=== PATIENT | female | born 1945 | race Caucasian/White ===

== ENCOUNTER 2020-02-29 07:56 | Outpatient (CLI) | payer MEDICARE, SELFPAY ==
--- NOTE | ~2020-02-29 | US_ITS ---
US arterial ankle brachial ind INDICATION: Diabetes. History of smoking. Intermittent claudication. TECHNIQUE: Segmental pressures and plethysmographic and Doppler waveforms of the brachial and lower e xtremity arteries were obtained. COMPARISON: 05/17/2017. FINDINGS: Right and left brachial artery pressures of 139 mm Hg and 140 mm Hg, respectively, are concordant (no rmal difference <= 30 mmHg). The right ankle-brachial index (NATALIE) is 0.95 (normal >= 0.9-1.0). The right great toe-brachial index (TBI) is 0.91 (normal >= 0.60). The left NATALIE is 0.97. The left TBI is 0.83. IMPRESSION: 1. Normal bilateral ankle and toe brachial indices. Reviewed, dictated and finalized at location A.
== END 2020-02-29 07:57 | disposition home or self-care (01) ==
PROVIDERS: PCP Internal Medicine; Visit Provider Internal Medicine
DX: I73.89 Other specified peripheral vascular diseases (principal)
CPT/HCPCS: 93922

== ENCOUNTER → 2020-08-01 09:41 | Outpatient (CLI) | payer MEDICARE, SELFPAY ==
--- NOTE | ~2020-08-01 | US_ITS ---
EXAMINATION: US abdomen limited EXAM DATE: 08/01/2020 10:16 INDICATION: Abn results of liver function, abn CT of liver . TECHNIQUE: Multiple grayscale and Doppler images of the abdomen right upper quadrant were obtained (b y a technologist who performed the scan) and subsequently reviewed. Correlation is made to CT abdomen 02/15/2019, ultrasound 05/23/2014. FINDINGS: The pancreatic head and body are normal in appearance. The pancreatic tail is not visualized. The l iver has normal echogenicity and contour. Some liver granulomata. There is no evidence of intrahepa tic biliary duct dilation. Portal venous flow was seen in the hepatopedal, normal direction and has normal Doppler waveform. No right-sided hydronephrosis. Common bile duct measures 8 mm, which is mildly dilated but common finding following cholecystectomy. IMPRESSION: 1. Several liver granulomata. Reviewed, dictated and finalized at location B. [employer]RARIAN
== END ==
PROVIDERS: PCP Internal Medicine; Visit Provider Internal Medicine Gastroenterology
DX: R94.5 Abnormal results of liver function studies (principal); R93.2 Abnormal findings on diagnostic imaging of liver and biliary tract
CPT/HCPCS: 76705

== ENCOUNTER → 2020-09-16 11:32 | Outpatient (CLI) | payer MEDICARE, SELFPAY ==
--- NOTE | ~2020-09-16 | CT_ITS ---
EXAMINATION: CT lung screening DATE: 09/16/2020 11:47 INDICATION: Personal history of tobacco dependence, current smoker with 57 pack year history TECHNIQUE: Computed tomography (CT) of the chest was performed without intravenous contrast. The dose -length product (DLP) was 101.53 mGy-cm. Automated exposure control and iterative reconstruction tech [employer] were employed. COMPARISON: 06/13/2018 FINDINGS: There is mild emphysema. No pulmonary nodules are identified. The lungs are free of acute o pacities. There is no pleural effusion or pneumothorax. Calcified coronary artery atherosclerosis is noted. There is a small sliding hiatal hernia. Punctate calcifications in an otherwise normal liver l ikely represent healed granulomatous disease. There is moderate thoracic spondylosis. IMPRESSION: 1. Lung-RADS category 1: Negative. Continue annual screening with noncontrast low-dose chest CT in 12 months. Reviewed, dictated and finalized at location B. IMPRESSION: 1. Lung-RADS category 1: Negative. Continue annual screening with noncontrast l ow-dose chest CT in 12 months.
--- NOTE | ~2020-09-16 | US_ITS ---
EXAMINATION: US renal BI DATE: 09/16/2020 12:01 INDICATION: Hematuria, multiple urinary tract infections TECHNIQUE: Multiple grayscale and Doppler ultrasound images of the kidneys were obtained. COMPARISON: CT, 06/14/2018 FINDINGS: The right kidney measures 8.9 x 3.7 x 4.0 cm. The left kidney measures 9.8 x 4.3 x 4.9 cm a nd contains a 1.4 cm cyst. The kidneys demonstrate normal parenchymal echogenicity. There is no hydro nephrosis. The bladder wall is mildly thickened although the bladder is incompletely distended. There appears to be debris layering posteriorly in the bladder. IMPRESSION: 1. Normal kidneys without hydronephrosis. 2. Possible bladder wall thickening which could be due to incomplete distention or cystitis. Small am ount of posterior debris in the bladder is also suggestive of infection, current versus previous. Reviewed, dictated and finalized at location B. IMPRESSION: 1. Normal kidneys without hydronephrosis. 2. Possible bladder wall thickening which could be due to incomplete distention or cystitis. Small amount of posterior debris in the bladder is also suggestiv e of infection, current versus previous.
== END ==
PROVIDERS: Visit Provider Internal Medicine
DX: R31.9 Hematuria, unspecified (principal); Z12.2 Encounter for screening for malignant neoplasm of respiratory organs; Z87.891 Personal history of nicotine dependence
CPT/HCPCS: 71271; 76775

== ENCOUNTER 2020-10-01 08:18 | Outpatient (CLI) | payer MEDICARE, SELFPAY ==
--- NOTE | ~2020-10-01 | US_ITS ---
EXAMINATION: US art doppler w press ISAEL DOMINGO EXAM DATE: 10/01/2020 09:02 INDICATION: Leg peripheral arterial disease. Claudication at less than 1 block. TECHNIQUE: Segmental pressures and plethysmographic and Doppler waveforms of the brachial and lower e xtremity arteries were obtained. Comparison is made to prior examination from 02/29/2020. FINDINGS: Right and left brachial artery pressures of 146 mm Hg and 156 mm Hg, respectively, are concordant (no rmal difference <= 30 mmHg). The right and left thigh-brachial pressure indices are 0.99, 1.07, resp ectively (normal > 1.2). RIGHT LEG: The ankle-brachial index (NATALIE) is 0.89 (normal >= 0.9-1). The great toe-brachial index (TBI) is 1.28 (normal >= 0.65). The lower extremity ratios, segmental pressure gradients as follows; Proximal superficial femoral artery:- 0.99 (154 mmHg). Distal superficial femoral artery: ----- 1.20 (187 mmHg). Popliteal: 0.95 (148 mmHg). Dorsalis pedis: 0.87 (136 mmHg). Posterior tibial: 0.89 (139 mmHg). (Normal gradients <= 20-30 mmHg between adjacent levels on the same leg or the same levels on the two legs). Arterial waveforms are biphasic. LEFT LEG: The ankle-brachial index (NATALIE) is 0.98 (normal >= 0.9-1). The great toe-brachial index (TBI) is 0.67 (normal >= 0.65). The lower extremity ratios, segmental pressure gradients as follows; Proximal superficial femoral artery:- 1.07 (167 mmHg). Distal superficial femoral artery: ----- 1.19 (186 mmHg). Popliteal: 1.19 (186 mmHg). Dorsalis pedis: 0.98 (153 mmHg). Posterior tibial: 0.94 (146 mmHg). (Normal gradients <= 20-30 mmHg between adjacent levels on the same leg or the same levels on the two legs). Arterial waveforms are biphasic. IMPRESSION: 1. Right ankle-brachial index 0.89, slightly decreased. 2. Left ankle-brachial index 0.98, normal. 3. Segmental pressures as above. Reviewed, dictated and finalized at location A.
== END 2020-10-01 08:19 | disposition home or self-care (01) ==
PROVIDERS: Visit Provider Internal Medicine
DX: I73.9 Peripheral vascular disease, unspecified (principal)
CPT/HCPCS: 93923

== ENCOUNTER 2020-10-22 19:29 | Emergency (ER) | payer MEDICARE, SELFPAY ==
--- NOTE | ~2020-10-22 | CT_ITS ---
EXAMINATION: CT brain wo con INDICATION: Head injury COMPARISON: 01/13/2017 TECHNIQUE: Standard unenhanced head CT. The dose-length product (DLP) was 605.33 mGy-cm. The mA was a djusted according to patient size. Iterative reconstruction technique was employed. FINDINGS: There is no acute intraparenchymal hemorrhage. No evidence of mass lesion. There is old rig ht frontal lobe infarct. No evidence of acute infarction. There is moderate periventricular and subco rtical hypodensity probably related to small vessel ischemic disease. There is moderate prominence of the sulci and ventricles related to cerebral atrophy. Intracranial calcified cerebral atherosclerosi s is noted. There are no extra-axial collections. There is no mass effect or midline shift. Changes i n the globes are likely from ocular lens surgery. There is mild mucosal thickening of the paranasal s inuses. IMPRESSION: 1. No acute intracranial abnormality. 2. Age related findings. Reviewed, dictated and finalized at location A.
[2020-10-22 19:57] VITALS: PULSE 63; RESP 16; TEMP 36.8; O2SAT 100
--- NOTE | 2020-10-22 20:30 | ED.HEATRA ---
HPI - Head Injury General Chief complaint: Fall Stated complaint: fall, hit head. no blood thinners Time Seen by Provider: 10/22/20 20:17 Source: patient Mode of arrival: ambulatory Limitations: no limitations History of Present Illness HPI Narrative: Patient is a 74-year-old female complaining of hitting her head on the floor earlier this afternoon. Patient states that she was sitting down on her roller with 5 wheels, she is always unsteady on her feet because of her bad knees and neuropathy according to and she fell backwards and hit the back of her head, denies LOC, had mild pain earlier but currently denies any head pain or headache. Denies any neck, back, chest, hip or any extremity pain/injury. Patient currently denies any symptoms. Related Data Home Medications Medication Instructions Recorded Confirmed alendronate mg PO 05/07/19 08/21/19 allopurinol 05/07/19 08/21/19 glimepiride mg 05/07/19 08/21/19 losartan 05/07/19 08/21/19 metoprolol tartrate 05/07/19 08/21/19 pregabalin 05/07/19 08/21/19 sertraline mg 05/07/19 08/21/19 Allergies Allergy/AdvReac Type Severity Reaction Status Date / Time codeine AdvReac Chest Pain Verified 10/22/20 19:59 Review of Systems Review of Systems: All systems reviewed & are unremarkable except as noted in HPI and below Constitutional: Constitutional: Denies body ache(s), Denies chills, Denies excessive sweating, Denies fatigue, Denies fever(s), Denies headache(s), Denies lethargy, Denies malaise, Denies weakness and Denies weight loss Eyes: Eyes: Denies blurry vision, Denies change in vision and Denies loss of vision ENT: Denies dizziness, Denies ear discharge, Denies headache(s), Denies lip swelling, Denies epistaxis, Denies nasal congestion, Denies neck pain, Denies throat swelling and Denies tongue swelling Cardiovascular: Cardiovascular: Denies chest pain, Denies chest pain at rest, Denies chest pain with activity, Denies diaphoresis, Denies rapid heart rate, Denies edema, Denies irregular heart rhythm, Denies lightheadedness, Denies palpitations, Denies dyspnea and Denies dyspnea on exertion Respiratory: Respiratory: Denies chest congestion, Denies cough, Denies hemoptysis, Denies dyspnea and Denies dyspnea on exertion Gastrointestinal: Gastrointestinal: Denies abdominal pain, Denies melena, Denies hematochezia, Denies diarrhea, Denies nausea, Denies vomiting and Denies hematemesis Musculoskeletal: Musculoskeletal: Denies abnormal gait, Denies deformity, Denies joint swelling, Denies limited range of motion, Denies neck pain and Denies numbness Neurologic: Denies Abnormal speech present, Denies abnormal gait, Denies confusion, Denies dizziness, Denies headache(s), Denies focal weakness, Denies loss of vision, Denies numbness, Denies Other visual disturbances, Denies Sensory deficit (Neuro) and Denies weakness Psychiatric: Psychiatric: Denies confusion, Denies depression, Denies auditory hallucinations, Denies homicidal ideation and Denies suicidal ideation Endocrine: Endocrine: Denies cold intolerance, Denies excessive sweating, Denies fatigue, Denies heat intolerance and Denies palpitations Hematologic/Lymphatic: Hematologic/Lymphatic: Denies easy bleeding and Denies easy bruising Allergic/Immunologic: Allergic/Immunologic: Denies lip swelling, Denies throat swelling and Denies tongue swelling PMFSH Past Medical History Medical History Arthritis Gout Hypertension Peripheral neuropathy Type 2 diabetes mellitus Surgical History Surgical History History of appendectomy History of hysterectomy Social History Social History Gender identity (if verbalized by the patient): Female Exam Const: General: cooperative, healthy appearing, comfortable, no acute distress, well developed, alert and a
[2020-10-22 20:54] LABS: Glucose Point of Care 70 mg/dl (65-105)
[2020-10-22 21:20] VITALS: BP 127/69; PULSE 68; RESP 17; O2SAT 98
== END 2020-10-22 21:21 | disposition home or self-care (01) ==
LOC: ANHED 20:36
PROVIDERS: Emergency Provider Emergency Medicine; PCP Internal Medicine
DX: S09.90XA Unspecified injury of head, initial encounter (principal); M19.90 Unspecified osteoarthritis, unspecified site; I10 Essential (primary) hypertension; E11.42 Type 2 diabetes mellitus with diabetic polyneuropathy; W19.XXXA Unspecified fall, initial encounter
CPT/HCPCS: 70450; 82948; 99284

== ENCOUNTER 2021-02-18 15:39 | Emergency (ER) | payer MEDICARE, SELFPAY ==
--- NOTE | ~2021-02-18 | CT_ITS ---
EXAMINATION: CT brain wo con DATE: 02/18/2021 19:14 INDICATION: Left frontal headache, confusion. TECHNIQUE: Computed tomography (CT) of the head was performed without intravenous contrast. The mA wa s adjusted according to patient size. Iterative reconstruction technique was employed. Exam dose: 52 9.67 mGy-cm total exam DLP. COMPARISON: 10/22/2020 CT brain 02/15/2019 MRI brain/brainstem FINDINGS: There is stable chronic right frontal encephalomalacia consistent with history of right fro ntal cerebrovascular accident. Prominent bilateral carotid siphon internal carotid artery calcifications. No intracranial mass lesion or hemorrhage or recent cerebrovascular accident. There is nonspecific diminished attenuation cerebral white matter, likely due to chronic small vessel ischemic changes. No subdural or epidural hematoma is detected. There is soft tissue thickening in the posterior aspect of the left sphenoid sinus. Included paranasa l sinuses and mastoid air cells are otherwise unremarkable. No fracture or bone destruction of the cranial vault. IMPRESSION: Cerebral atherosclerosis and chronic small vessel ischemic changes of the cerebral white matter Chronic right frontal infarct No acute intracranial finding Reviewed, dictated and finalized at Location A. Reviewed, dictated and finalized at location A.
--- NOTE | ~2021-02-18 | XR_ITS ---
XR chest 1V portable DATE: 02/18/2021 19:08 INDICATION: Altered mental status. Headache. Hypertension. Gout. TECHNIQUE: Portable upright AP chest on 02/18/2021 at 1859 hours COMPARISON: CT lung screening 01/13/2017 portable AP chest FINDINGS: Cardiomegaly. Aortic calcification and mild unfolding. No hilar or mediastinal enlargement. No pulmonary consolidation, pleural effusion or pneumothorax is detected. Diffuse osteopenia. IMPRESSION: Cardiomegaly and aortic atherosclerosis; no active pulmonary disease Reviewed, dictated and finalized at location A. IMPRESSION: Cardiomegaly and aortic atherosclerosis; no active pulmonary diseas e
[2021-02-18 15:42] VITALS: BP 119/51; PULSE 59; RESP 16; TEMP 37; O2SAT 98
--- NOTE | 2021-02-18 15:44 | ECG_ITS ---
Measurements Intervals [place] Rate: 56 P: 82 TN: 241 QRS: -55 QRSD: 114 T: 53 QT: 414 QTc: 400 Interpretive Statements SINUS BRADYCARDIA WITH FIRST DEGREE AV BLOCK RIGHT BUNDLE BRANCH BLOCK LEFT ANTERIOR FASCICULAR BLOCK VOLTAGE CRITERIA FOR LVH BASELINE ARTIFACT- I, II, III, AVR, AVL, AVF, V1-V6 ABNORMAL ECG Electronically Signed On 02-18-2021 19:50:27 CDT by Jose Baker D.O.
[2021-02-18 16:00] LABS: Basophils Percent Auto 0.5 % (0.2-1.2); Eosinophils Absolute Auto 0.1 K/mm3 (0-0.3); Eosinophils Percent Auto 1.3 % (0-4.4); Hematocrit 35.1 % (37.0-47.0); Hemoglobin 11.4 g/dL (12.0-15.0); Immature Granulocyte Absolute 0.02 K/mm3 (0.00-0.031); Immature Granulocyte Percent A 0.5 % (0-0.5); Lymphocytes Absolute Auto 0.76 K/mm3 (0.9-3.2); Lymphocytes Percent Auto 20.2 % (18.3-44.2); Mean Corpuscular HGB Conc 32.5 g/dl (32-36); Mean Corpuscular Hemoglobin 31.3 pg (26-34); Mean Corpuscular Volume 96.4 fl (80-100); Mean Platelet Volume 12.5 fl (7.4-10.4); Monocytes Absolute Auto 0.4 K/mm3 (0.1-0.6); Monocytes Percent Auto 10.6 % (2.6-8.5); Neutrophils Absolute Auto 2.5 K/mm3 (1.3-6.7); Neutrophils Percent Auto 66.9 % (45.5-73.1); Platelet Count Result 101 k/mm3 (150-375); Red Blood Count 3.64 M/mm3 (4.2-5.4); Red Cell Distribution Width 15.1 % (11.5-14.5); White Blood Count 3.8 K/mm3 (4.5-10.0)
[2021-02-18 16:16] LABS: Alanine Aminotransferase 12 U/L (4-35); Albumin Level 3.7 g/dL (3.5-5.1); Alkaline Phosphatase 160 U/L (38-126); Anion Gap 9 mmol/L (8-16); Aspartate Amino Transferase 24 U/L (14-36); Bilirubin,Total 0.3 mg/dL (0.2-1.3); Blood Urea Nitrogen 24 mg/dL (7-17); Calcium 8.7 mg/dL (8.4-10.2); Carbon Dioxide 22 mmol/L (22-30); Chloride 105 mmol/L (98-107); Estimated CRCL calculation 32 ml/min; Estimated Glomerular Filt Rate 44; Glucose 148 mg/dL (65-110); Potassium 4.3 mmol/L (3.4-5.0); Sodium 136 mmol/L (137-145)
[2021-02-18 18:51] VITALS: BP 96/77; PULSE 57; RESP 18; O2SAT 98
--- NOTE | 2021-02-18 19:11 | PC.NURSE ---
Pt to imaging at this time.
--- NOTE | 2021-02-18 19:30 | ED.GENADULT ---
HPI - General Adult General Chief complaint: Altered Mental Status Stated complaint: Confusion Time Seen by Provider: 02/18/21 18:49 Source: patient History of Present Illness HPI narrative: Patient is a 75 y/o female brought in by EMS for altered mental status. states that she was acting confused since about 4:00 AM this morning. She was talking about people. There is no known alleviating or exacerbating factor. However, her symptoms have improved spontaneously. She appears to be baseline at this time. Patient has no complaint herself. Related Data Home Medications Medication Instructions Recorded Confirmed alendronate mg PO 05/07/19 08/21/19 allopurinol 05/07/19 08/21/19 glimepiride mg 05/07/19 08/21/19 losartan 05/07/19 08/21/19 metoprolol tartrate 05/07/19 08/21/19 pregabalin 05/07/19 08/21/19 sertraline mg 05/07/19 08/21/19 Allergies Allergy/AdvReac Type Severity Reaction Status Date / Time codeine AdvReac Chest Pain Verified 10/22/20 19:59 Review of Systems Constitutional: Constitutional: Denies chills, Denies fever(s), Denies headache(s) and Denies weakness Eyes: Eyes: Denies blurry vision ENT: Denies headache(s) and Denies neck pain Cardiovascular: Cardiovascular: Denies chest pain and Denies dyspnea Respiratory: Respiratory: Denies cough and Denies dyspnea Gastrointestinal: Gastrointestinal: Denies abdominal pain, Denies diarrhea, Denies nausea and Denies vomiting Genitourinary: Genitourinary: Denies hematuria and Denies dysuria Musculoskeletal: Musculoskeletal: Denies back pain and Denies neck pain Neurologic: Denies headache(s) and Denies weakness [facility] Past Medical History Medical History Arthritis Gout Hypertension Peripheral neuropathy Type 2 diabetes mellitus Surgical History Surgical History History of appendectomy History of hysterectomy Social History Social History Gender identity (if verbalized by the patient): Female Exam Const: General: no acute distress and well developed Orientation/consciousness: oriented to person, oriented to place, oriented to time and patient oriented x3 HENMT: Head: normocephalic Ears: external ears normal General nose exam: Normal external nose present Eyes: General: appearance normal, both eyes and all related structures Conjunctivae: conjunctivae normal Neck: Neck: normal visual inspection and full ROM Chest: Chest palpation & inspection: normal inspection of the chest and no tenderness Resp: Effort & Inspection: normal respiratory effort Auscultation: clear to auscultation bilaterally Cardio: Rate: regular rate Rhythm: regular rhythm GI: GI Palp: No abdominal tenderness and Yes Soft to palpation Skin: General skin exam: normal color and turgor normal Neuro: General: oriented to person, oriented to place, oriented to time and patient oriented x3 Cranial nerves: Yes CN's II-XII intact bilaterally Cognition (Neuro): normal cognition Speech: normal speech Motor exam (neuro): 5/5 motor strength present throughout Sensory Exam: normal sensation Coordination: [id number] test normal and [id number] test normal Extrem: General: normal to inspection, full ROM and no pedal edema Psych: Appearance: grossly normal Mental Status: mental status grossly normal Affect: normal affect Course Vital Signs Vital signs: Vital Signs Temperature 37.0 C 02/18/21 15:42 Pulse Rate 59 L 02/18/21 15:42 Respiratory Rate 16 02/18/21 15:42 Blood Pressure 119/51 L 02/18/21 15:42 Pulse Oximetry 98 02/18/21 15:42 Temperature 37.0 C 02/18/21 15:42 Pulse Rate 59 L 02/18/21 21:15 Respiratory Rate 16 02/18/21 21:15 Blood Pressure 141/64 H 02/18/21 21:15 Pulse Oximetry 95 02/18/21 21:15 Medical Decision Making Vital Signs Vital Sig
[2021-02-18 19:31] VITALS: BP 142/73; PULSE 62; RESP 21; O2SAT 100
[2021-02-18 19:45] VITALS: BP 135/82; PULSE 60; RESP 18; O2SAT 94
[2021-02-18 20:15] VITALS: BP 138/69; PULSE 57; RESP 17; O2SAT 99
[2021-02-18 20:46] LABS: EDCOVIDSCREEN Negative (Negative)
[2021-02-18 20:47] LABS: Add Urine Microscopic? YES; Amorphous Sediment Urine Few; Appearance Urine Cloudy (Clear); Bacteria Urine 1+ /hpf; Bilirubin Urine Negative (Negative); Blood Urine 3+ (Negative); Color Urine Yellow (Yellow); Glucose Urine UA Negative (Negative); Ketones Urine Negative (Negative); Leukocyte Esterase Ur 3+ LEU/UL (Negative); Mucus Urine Rare /lpf; Nitrate Urine Positive (Negative); Protein Urine 2+ mg/dL (Negative); RBC Urine >75 /hpf (0-2); Specific Grav Ur 1.014 (1.001-1.035); Urobilinogen Urine Negative mg/dL (<2.0); WBC Clumps Urine Present /HPF; WBC Urine >75 /hpf
[2021-02-18 21:15] VITALS: BP 141/64; PULSE 59; RESP 16; O2SAT 95
== END 2021-02-18 21:20 | disposition home or self-care (01) ==
PROVIDERS: Emergency Medicine; Emergency Provider Emergency Medicine; PCP Internal Medicine
DX: N39.0 Urinary tract infection, site not specified (principal); R41.82 Altered mental status, unspecified; M19.90 Unspecified osteoarthritis, unspecified site; I10 Essential (primary) hypertension; E11.42 Type 2 diabetes mellitus with diabetic polyneuropathy; Z20.822 Contact with and (suspected) exposure to COVID-19
CPT/HCPCS: 36415; 70450; 71045; 80053; 81001; 85025; 87077; 87086; 87186; 87426; 93005; 99284; C9803

== ENCOUNTER 2021-02-24 03:19 | Inpatient (IN) | payer MEDICARE, SELFPAY ==
[2021-02-24] VITALS (15 sets, daily range): BP systolic 78–137; BP diastolic 52–83; PULSE 75–134; RESP 14–20; TEMP 36–39.1; O2SAT 93–97; BMI 24.6
--- NOTE | ~2021-02-24 | CT_ITS ---
EXAMINATION:CT diagnostic chest wo con DATE: 02/24/2021 07:22 INDICATION: Shortness of breath. Hypoxia. COVID-19 pneumonia. TECHNIQUE: Computed tomography (CT) of the chest was performed without intravenous contrast. Automate d exposure control and iterative reconstruction technique were employed. The dose-length product (DLP ) was 131.66 mGy-cm. COMPARISON: Chest CT 09/16/2020 FINDINGS: There is mild emphysema. Motion artifact is noted. There are mild airspace opacities in the basilar lower lobes. There are patchy groundglass opacities in all lobes. There are areas of crazy p aving in the upper lobes and right middle lobe. No pleural effusion. 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 The heart size is normal. There are coronary artery calcifications. There is mild media stinal lymphadenopathy. There is a small sliding hiatal hernia. Calcifications in the liver and splee n are consistent with old granulomatous disease. There is severe cervical and thoracic spondylosis. T here is mild chronic anterior wedging of multiple lower thoracic vertebral bodies. IMPRESSION: 1. Diffuse lung disease, consistent with pneumonia. 2. Mild emphysema. 3. Mild mediastinal lymphadenopathy, likely reactive. Reviewed, dictated and finalized at location A.
--- NOTE | 2021-02-24 03:47 | ECG_ITS ---
Measurements Intervals [place] Rate: 130 P: PA: 0 QRS: -65 QRSD: 109 T: 99 QT: 343 QTc: 505 Interpretive Statements ATRIAL FIBRILLATION WITH RAPID VENTRICULAR RESPONSE VENTRICULAR PREMATURE COMPLEX RIGHT BUNDLE BRANCH BLOCK LEFT ANTERIOR FASCICULAR BLOCK BASELINE ARTIFACT- I, II, AVR, V1, V4-V6 ABNORMAL ECG Electronically Signed On 02-24-2021 7:28:42 CDT by Jose Baker D.O.
[2021-02-24] MEDS: methylPREDNISolone SOD SUCC 125 MG VIAL IV PUSH (04:17)
[2021-02-24] MEDS: ALBUTEROL SULFATE (*SP) INHALER 2 PUFF INHALATION (04:20)
[2021-02-24] MEDS: SODIUM CHLORIDE 0.9% IV 500 ML 999 ML IV CONT (04:25)
[2021-02-24 04:55] LABS: Base Excess ABG -3.1 mmol/L (0-2); HCO3 ABG 19.6 mmol/L (23-29); Oxygen Saturation ABG 90.7 % (95-97); Oxyhemoglobin 89.7 % (94-100); PCO2 ABG 29.2 mmHg (35-45); PO2 ABG 56.6 mmHg (75-85); Total Hemoglobin 14.3 g/dL (12.0-18.0); pH ABG 7.45 (7.35-7.45)
[2021-02-24 04:58] LABS: Device NASAL CANNULA; Modified Allen's Test Pass; Site Drawn LEFT RADIAL
[2021-02-24 05:07] LABS: Basophils Absolute Auto 0.01 K/mm3 (0.00-0.10); Basophils Percent Auto 0.1 % (0.0-1.0); Hematocrit 31.8 % (35.0-42.0); Hemoglobin 10.8 g/dL (11.7-13.8); Immature Granulocyte Absolute 0.04 K/mm3 (0.00-0.00); Immature Granulocyte Percent A 0.5 % (0.0-0.0); Lymphocytes Absolute Auto 1.39 K/mm3 (1.10-4.50); Mean Corpuscular Hemoglobin 31.2 pg (27.0-31.0); Mean Corpuscular Volume 91.9 fL (78.0-102.0); Mean Platelet Volume 12.6 fl (9.2-11.8); Monocytes Percent Auto 13.5 % (2.0-11.0); Neutrophils Absolute Auto 5.6 K/mm3 (1.7-7.2); Neutrophils Percent Auto 68.9 % (50.0-70.0); Platelet Count Result 108 K/mm3 (150-420); Red Blood Count 3.46 M/mm3 (4.20-5.40); Red Cell Distribution Width 14.4 % (11.6-14.4); White Blood Count 8.2 K/mm3 (4.8-10.8)
[2021-02-24 05:16] LABS: Add Urine Microscopic? YES; Appearance Urine Clear (Clear); Bilirubin Urine 1+ (Negative); Blood Urine 3+ (Negative); Color Urine Yellow (Yellow); Glucose Urine UA Negative (Negative); Ketones Urine Negative (Negative); Leukocyte Esterase Ur 1+ (Negative); Nitrate Urine Negative (Negative); Protein Urine 2+ (Negative); pH Urine 5.5 (5.0-8.0)
[2021-02-24 05:25] LABS: Influenza Control Valid (Valid)
[2021-02-24 05:26] LABS: Bacteria Urine 2+ /hpf; RBC Urine 21-50 /hpf (0-2); Squamous Epithelial Cell Urine Moderate /hpf (Few); WBC Clumps Urine Present /hpf; WBC Urine 16-20 /hpf (0-3)
[2021-02-24 05:31] LABS: SARS-CoV-2 Ag Positive (Negative)
[2021-02-24 05:38] LABS: Alanine Aminotransferase 16 U/L (14-59); Albumin Level 2.8 g/dL (3.4-5.0); Alkaline Phosphatase 127 U/L (46-116); Aspartate Amino Transferase 26 U/L (15-37); Bilirubin,Total 0.6 mg/dL (0.00-1.00); Blood Urea Nitrogen 31 mg/dL (7-18); Carbon Dioxide 20 mmol/L (21-32); Estimated Glomerular Filt Rate 30; Glucose 121 mg/dL (70-99); Total Protein 7.6 g/dL (6.4-8.2); Troponin I 18.4 ng/L (0.00-60.4)
[2021-02-24 05:39] LABS: NT Pro B Type Natriuretic Pept 2609 pg/mL (0-450)
--- NOTE | 2021-02-24 05:58 | PC.NURSE ---
granddaughter notified pt positive for covid. and visitor policy.
--- NOTE | 2021-02-24 06:00 | PC.NURSE ---
pt sleeping, respiration even unlabored.
[2021-02-24] MEDS: AZITHROMYCIN 250 MG TABLET 500 MG PO (06:50)
--- NOTE | 2021-02-24 06:50 | ED.SOB ---
HPI - SOB/Dyspnea General Chief Complaint: Shortness of Breath/Dyspnea Stated Complaint: sob Time Seen by Provider: 02/24/21 03:21 Source: patient, family, EMS and RN notes reviewed Mode of arrival: EMS Limitations: clinical condition (pt was very dyspneic and did not talk very much.) History of Present Illness MD elicited complaint: shortness of breath, cough and chest pain Onset (ago): day(s) (1) Context: recent illness Timing: progressively worsening Severity: moderate Exacerbating factors: lying flat and coughing Relieving factors: nothing Associated symptoms: chest pain, fever, cough and wheezing Treatment prior to arrival: oxygen Related Data Home oxygen amount: none Home Medications Medication Instructions Recorded Confirmed alendronate 70 mg PO WEEKLY 05/07/19 02/24/21 allopurinol 100 mg PO DAILY 05/07/19 02/24/21 losartan 100 mg PO DAILY 05/07/19 02/24/21 metoprolol tartrate 50 mg PO BID 05/07/19 02/24/21 pregabalin 150 mg PO DAILY 05/07/19 02/24/21 sertraline 50 mg PO DAILY 05/07/19 02/24/21 oxybutynin chloride 10 mg PO DAILY 02/24/21 02/24/21 trazodone 50 mg PO DAILY 02/24/21 02/24/21 Allergies Allergy/AdvReac Type Severity Reaction Status Date / Time codeine AdvReac Chest Pain Verified 10/22/20 19:59 Review of Systems Review of Systems: All systems reviewed & are unremarkable except as noted in HPI and below Constitutional: Constitutional: Reports fever(s) Cardiovascular: Cardiovascular: Reports chest pain Respiratory: Respiratory: Reports cough PMFSH Past Medical History Medical History (Updated 02/24/21 @ 14:00 by GIUSEPPE Schneider) Arthritis Gout Hypertension Peripheral neuropathy Type 2 diabetes mellitus Surgical History Surgical History History of appendectomy History of hysterectomy Social History Social History Smoking packs per day: 0.5 Smoking cigarettes per day: 10.0 Years smoked: 40 Smoking pack-years: 20.00 Smoking status: Current every day smoker Tobacco type: cigarettes Alcohol intake: never Substance use: never Substance use type: does not use Gender identity (if verbalized by the patient): Female Spiritual care concerns: No Exam Const: General: alert and diaphoretic Orientation/consciousness: patient oriented x3 HENMT: Ears: external ears normal and TM's normal bilaterally General nose exam: Normal external nose present and Normal nares present Mouth: Yes moist mucous membranes Eyes: Conjunctivae: conjunctivae normal Pupils: Equal, round and reactive pupils present EOM: EOMs intact bilaterally Neck: Neck: normal visual inspection Resp: Effort & Inspection: labored, retractions, tachypneic and uses accessory muscles Auscultation: rhonchi and wheezes Cardio: Rhythm: abnormal rhythm GI: GI Palp: Yes Soft to palpation (non-tender) Percussion: Yes normal to percussion Auscultation: normal bowel sounds : General: Yes bladder normal to palpation and Yes no CVA tenderness Back/Spine/Pelvis: Back: no CVA tenderness Skin: General skin exam: normal color Rashes: no rashes Neuro: General: patient oriented x3, moves all extremities, no meningeal signs, no focal motor deficits and CN's II-XI intact bilaterally Extrem: General: normal to inspection and no pedal edema Psych: Mental Status: mental status grossly normal Affect: Sad affect present Attitude: cooperative Course Course Emergency Course: Pt was ill in the ED. She was endorsed to Dr Shannon at 0700. Will repeat EKG to confirm new-onset atrial fibrillation. Reevaluation(s) Reevaluation #1: Pt showed slight improvement but was still tachycardic. Date: 02/24/21 Time: 04:16 Vital Signs Vital signs: Vital Signs Temperature 39.1 C H 02/24/21 03:20 Pulse Rate 121 H 02/24/21 03:20 Respiratory Rate 20 02/24/21 03:20 Blood Pressure 137/72 09
[2021-02-24] MEDS: METOPROLOL TARTRATE INJ 5 MG/5 ML VIAL 2.5 MG IV PUSH (07:15)
[2021-02-24] MEDS: IBUPROFEN 400 MG TABLET 800 MG PO (07:16)
[2021-02-24] MEDS: FUROSEMIDE INJ 40 MG/4 ML VIAL IV PUSH (07:16)
[2021-02-24] MEDS: ACETAMINOPHEN 325 MG TABLET 650 MG PO ×2 (07:18→23:50)
--- NOTE | 2021-02-24 07:20 | PC.NURSE ---
report to jorge gomez
[2021-02-24] MEDS: SODIUM CHLORIDE 0.9% IV 1,000 ML 100 ML IV CONT ×2 (08:00→18:00)
[2021-02-24 08:20] LABS: INR 1.1; Prothrombin Time 11.2 Seconds (9.50-12.10)
[2021-02-24] MEDS: SODIUM CHLORIDE 0.9% IV 1,000 ML 999 ML IV CONT (08:46)
[2021-02-24 09:30] LABS: Sodium 132 mmol/L (136-145)
[2021-02-24 09:31] LABS: Anion Gap 9 mmol/L (8-16); Chloride 103 mmol/L (98-108); Osmolality Calculated 281 mOsm/kg (285-295); Potassium 4.1 mmol/L (3.5-5.1)
--- NOTE | 2021-02-24 09:50 | PC.NURSE ---
Pt admitted to 209 for covid. Isolation status initiated. Pt clothing and house shoes with her, states she wears dentures, but don't know where they are. Dentures are not currently with patient.
[2021-02-24] MEDS: REMDESIVIR 200 MG/NS 250 ML 200 MG/250 ML BAG 250 MG IVPB (11:11)
[2021-02-24] MEDS: ENOXAPARIN 30 MG/0.3 ML SYRINGE SUB-Q (11:11)
[2021-02-24] MEDS: DEXAMETHASONE SOD PHOS INJ 4 MG/ML VIAL 6 MG IV PUSH (11:12)
[2021-02-24] MEDS: LOSARTAN POTASSIUM 50 MG TABLET 100 MG PO (11:12)
[2021-02-24] MEDS: allopurinoL 100 MG TABLET PO (11:12)
[2021-02-24] MEDS: METOPROLOL TARTRATE 50 MG TAB PO ×2 (11:13→21:51)
[2021-02-24] MEDS: SERTRALINE HCL 50 MG TABLET PO (11:13)
[2021-02-24] MEDS: PREGABALIN (*CRX) 50 MG CAPSULE 150 MG PO (11:13)
[2021-02-24 11:32] LABS: Glucose Point of Care 213 mg/dl (65-105)
--- NOTE | 2021-02-24 13:52 | PM.IMHP ---
H&P: HPI History of Present Illness Date/Time: 02/24/21 13:52 Kelly Stone is a 75 year old female who is admitted in the hospital for SOB. Patient states that she came for an out patient CT scan and then for some reason she ended up in the ER and was admitted. Patient does not recall why she was admitted. She is alert and oriented to person place and time just not events leading up to hospitalization. Patient states her breathing is fine and does not feel any shortness of breath or increased work of breathing. Patient tested positive for COVID and she admits to having the [employer] vaccine. Patient has a PMHx of Arthritis, HTN, T2DM and Peripheral Neuropathy, and Gout. Patient denies chest pain, shortness of breath, abdominal issues, urinary symptoms, body aches, joint aches, chills. Patient does admit to having fever couple days ago. Chief Complaint: SOB, Fever Review of Systems Review of Systems: All systems reviewed & are unremarkable except as noted in HPI and below PMFSH Past Medical History Medical History (Updated 02/24/21 @ 14:00 by GIUSEPPE Schneider) Arthritis Gout Hypertension Peripheral neuropathy Type 2 diabetes mellitus Surgical History Surgical History History of appendectomy History of hysterectomy Social History Social History Smoking packs per day: 0.5 Smoking cigarettes per day: 10.0 Years smoked: 40 Smoking pack-years: 20.00 Smoking status: Current every day smoker Tobacco type: cigarettes Alcohol intake: never Substance use: never Substance use type: does not use Gender identity (if verbalized by the patient): Female Spiritual care concerns: No Meds Home Medications and Allergies Home Medications Medication Instructions Recorded Confirmed Type alendronate 70 mg PO WEEKLY 05/07/19 02/24/21 History allopurinol 100 mg PO DAILY 05/07/19 02/24/21 History losartan 100 mg PO DAILY 05/07/19 02/24/21 History metoprolol tartrate 50 mg PO BID 05/07/19 02/24/21 History pregabalin 150 mg PO DAILY 05/07/19 02/24/21 History sertraline 50 mg PO DAILY 05/07/19 02/24/21 History ciprofloxacin HCl 250 mg PO Q12H #14 tablet 02/18/21 02/24/21 Rx oxybutynin chloride 10 mg PO DAILY 02/24/21 02/24/21 History trazodone 50 mg PO DAILY 02/24/21 02/24/21 History Allergies Allergy/AdvReac Type Severity Reaction Status Date / Time codeine AdvReac Chest Pain Verified 10/22/20 19:59 Vital Signs Vital Signs - 24 hr 02/24/21 03:20 02/24/21 05:22 02/24/21 05:57 Temperature 102.4 F H 102.4 F H Pulse Rate 121 H 134 H 130 H Respiratory Rate 20 20 Blood Pressure 137/72 132/67 Pulse Oximetry 95 97 02/24/21 08:38 02/24/21 08:48 02/24/21 09:32 Temperature 98 F Pulse Rate 119 H 104 H Respiratory Rate 20 Blood Pressure 93/65 L 108/66 117/83 Pulse Oximetry 94 94 94 02/24/21 10:00 02/24/21 11:13 02/24/21 12:00 Temperature 97.7 F Pulse Rate 114 H 116 H Respiratory Rate 20 Blood Pressure 109/70 Pulse Oximetry 93 93 Exam Const: General: cooperative, comfortable, no acute distress, alert, awake and Physically active Nutritional Appearance: average body habitus Resp: Effort & Inspection: normal respiratory effort and Actively coughing (with deep inspiration) Auscultation: clear to auscultation bilaterally Cardio: Rate: regular rate Heart sounds: S1 normal heart sound present and S2 normal heart sound present GI: GI Palp: Yes Soft to palpation and No Tenderness to palpation present (GI) Auscultation: normal bowel sounds Skin: General skin exam: normal color and dry skin Neuro: General: oriented to person, oriented to place and oriented to time Cranial nerves: Yes CN's II-XII intact bilaterally (grossly intact) Speech: normal speech Extrem: General: no pedal edema Psych: Appearance: grossly normal Mental Status: mental status grossly n
[2021-02-24 17:19] LABS: Glucose Point of Care 272 mg/dl (65-105)
[2021-02-24 21:11] LABS: Glucose Point of Care 225 mg/dl (65-105)
--- NOTE | 2021-02-24 21:52 | PC.NURSE ---
IV site infiltrated, mikki encinas'lynn new site started in left arm, #[id number].
[2021-02-25] VITALS (8 sets, daily range): BP systolic 111–142; BP diastolic 54–74; PULSE 52–74; RESP 18–22; TEMP 36.2–36.7; O2SAT 92–96
[2021-02-25 05:38] LABS: Basophils Absolute Auto 0.01 K/mm3 (0.00-0.10); Basophils Percent Auto 0.1 % (0.0-1.0); Hematocrit 31.2 % (35.0-42.0); Hemoglobin 10.5 g/dL (11.7-13.8); Immature Granulocyte Percent A 0.9 % (0.0-0.0); Lymphocytes Absolute Auto 1.44 K/mm3 (1.10-4.50); Lymphocytes Percent Auto 12.9 % (18.0-42.0); Mean Corpuscular HGB Conc 33.7 g/dL (32.0-36.0); Mean Corpuscular Hemoglobin 30.8 pg (27.0-31.0); Mean Corpuscular Volume 91.5 fL (78.0-102.0); Mean Platelet Volume 12.6 fl (9.2-11.8); Monocytes Absolute Auto 0.72 K/mm3 (0.10-0.90); Monocytes Percent Auto 6.4 % (2.0-11.0); Neutrophils Absolute Auto 8.9 K/mm3 (1.7-7.2); Neutrophils Percent Auto 79.7 % (50.0-70.0); Platelet Count Result 131 K/mm3 (150-420); Red Blood Count 3.41 M/mm3 (4.20-5.40); Red Cell Distribution Width 14.5 % (11.6-14.4); White Blood Count 11.2 K/mm3 (4.8-10.8)
[2021-02-25 05:53] LABS: INR 1.1; Prothrombin Time 11.3 Seconds (9.50-12.10)
[2021-02-25 06:00] LABS: Alanine Aminotransferase 20 U/L (14-59); Albumin Level 2.2 g/dL (3.4-5.0); Alkaline Phosphatase 105 U/L (46-116); Anion Gap 15 mmol/L (8-16); Aspartate Amino Transferase 23 U/L (15-37); Bilirubin,Total 0.3 mg/dL (0.00-1.00); Blood Urea Nitrogen 49 mg/dL (7-18); Calcium 7.7 mg/dL (8.5-10.1); Carbon Dioxide 19 mmol/L (21-32); Chloride 106 mmol/L (98-108); Estimated CRCL calculation 21 ml/min; Estimated Glomerular Filt Rate 26; Glucose 149 mg/dL (70-99); Osmolality Calculated 306 mOsm/kg (285-295); Potassium 4.2 mmol/L (3.5-5.1); Sodium 140 mmol/L (136-145); Total Protein 6.7 g/dL (6.4-8.2)
[2021-02-25] MEDS: ALENDRONATE SODIUM 70 MG TABLET PO (06:04)
[2021-02-25] MEDS: DEXAMETHASONE SOD PHOS INJ 4 MG/ML VIAL 6 MG IV PUSH (08:13)
[2021-02-25] MEDS: ENOXAPARIN 30 MG/0.3 ML SYRINGE SUB-Q (08:13)
[2021-02-25] MEDS: LOSARTAN POTASSIUM 50 MG TABLET 100 MG PO (08:15)
[2021-02-25] MEDS: PREGABALIN (*CRX) 50 MG CAPSULE 150 MG PO (08:15)
[2021-02-25] MEDS: AZITHROMYCIN 250 MG TABLET 500 MG PO (08:15)
[2021-02-25] MEDS: allopurinoL 100 MG TABLET PO (08:16)
[2021-02-25] MEDS: METOPROLOL TARTRATE 50 MG TAB PO ×2 (08:16→20:25)
[2021-02-25] MEDS: SERTRALINE HCL 50 MG TABLET PO (08:16)
--- NOTE | 2021-02-25 10:00 | PM.IMPN ---
Progress Note: A&P Assessment and Plan (1) COVID-19: Code(s): U07.1 - COVID-19 <MILAD SchneiderN-C - Last Filed: 02/25/21 12:46> Status: Acute <Miguelito Pacheco APN-C - Last Filed: 02/25/21 12:46> Assessment and Plan: Remdesivir, Dexamethasone, Rocephin, Azithromycin, Supplemental Oxygen 2L NC, SpO2 93%, Monitoring VS Q4H, Monitoring ALT 16, Cr 1.65, PT/INR 11.2/1.1, Isolation 02/25/2021 ALT 20, Cr 1.90, PT/INR 11.3/1.1, WBC 11.2, continue above regimen, 118/60 HR 61 RR 22, 2L NC <Miguelito Pacheco AREA MANAGER-C - Last Filed: 02/25/21 12:46> (2) UTI (urinary tract infection): Code(s): N39.0 - Urinary tract infection, site not specified <Miguelito Pacheco AREA MANAGER-C - Last Filed: 02/25/21 12:46> Status: Acute <Miguelito Pacheco APN-C - Last Filed: 02/25/21 12:46> Assessment and Plan: 02/25/2021 Culture ordered today, Rocephin, 2+ Protein, 3+ Blood, 1+ Bili, 1+ LE, RBC 21-50, WBC 16-20, 2+ Bacteria, Pt does not have symptoms <Miguelito Pacheco AREA MANAGER-C - Last Filed: 02/25/21 12:46> (3) Hypertension: Code(s): I10 - Essential (primary) hypertension <Miguelito Pacheco AREA MANAGER-C - Last Filed: 02/25/21 12:46> Status: Acute <Miguelito PachecoZBIGNIEW-C - Last Filed: 02/25/21 12:46> Assessment and Plan: Continue Losartan, Metoprolol, monitor VS, make adjustments to medications as needed 02/25/2021 VSS, no changes to medications at this time <Miguelito Pacheco AREA MANAGER-C - Last Filed: 02/25/21 12:46> (4) Type 2 diabetes mellitus: Code(s): E11.9 - Type 2 diabetes mellitus without complications <Miguelito PachecoGIUSEPPE - Last Filed: 02/25/21 12:46> Status: Acute <Miguelito Pacheco ZBIGNIEWKenyatta - Last Filed: 02/25/21 12:46> Assessment and Plan: SSI, Diabetic Diet, Bedside Glucose monitoring ACHS, Hypoglycemic protocol in place, make adjustments as needed to medications 02/25/2021 Glucose 149-272, no adjustment to insulin at this time, continue monitoring <Miguelito PachecoZBIGNIEWKenyatta - Last Filed: 02/25/21 12:46> (5) Peripheral neuropathy: Code(s): G62.9 - Polyneuropathy, unspecified <Miguelito PachecoZBIGNIEWElizabethMarni - Last Filed: 02/25/21 12:46> Status: Acute <Miguelito PinoZBIGNIEW hortonElizabethMarni - Last Filed: 02/25/21 12:46> Assessment and Plan: Continue Pregabalin <Miguelito PinoZBIGNIEW hortonElizabethMarni - Last Filed: 02/25/21 12:46> (6) Gout: Code(s): M10.9 - Gout, unspecified <Miguelito PachecoZBIGNIEWElizabethMarni - Last Filed: 02/25/21 12:46> Status: Acute <Miguelito PachecoZBIGNIEWKenyatta - Last Filed: 02/25/21 12:46> Assessment and Plan: Continue Allopurinol <Miguelito PinoZBIGNIEW hortonElizabethMarni - Last Filed: 02/25/21 12:46> Subjective Date/time seen: 02/25/21 10:00 Pt is resting in bed and appears comfortable. She states her breathing is good. No CP, SOB, Abdominal issues, Urinary symptoms, fever, chills. There is no increased work of breathing. She talks in complete sentences. Well appearing. <Miguelito PinoGIUSEPPE horton - Last Filed: 02/25/21 12:46> Review of Systems Review of Systems: All systems reviewed & are unremarkable except as noted in HPI and below <Miguelito Snowden GIUSEPPE Pacheco - Last Filed: 02/25/21 12:46> Exam Const: General: cooperative, healthy appearing, comfortable, no acute distress, alert, awake and Physically active <GIUSEPPE Schneider - Last Filed: 02/25/21 12:46> Nutritional Appearance: average body habitus <GIUSEPPE Schneider - Last Filed: 02/25/21 12:46> Resp: Effort & Inspection: normal respiratory effort <GIUSEPPE Schneider - Last Filed: 02/25/21 12:46> Auscultation: clear to auscultation bilaterally and rhonchi (posterior bases) <GIUSEPPE Schneider - Last Filed: 02/25/21 12:46> Cardio: Rate: regular rate <GIUSEPPE Schneider - Last Filed: 02/25/21 12:46> Heart sounds: S1 normal heart sound present and S2 normal heart sound present <GIUSEPPE Schneider - Last Filed: 02/25/21 12:46> GI: G
[2021-02-25] MEDS: REMDESIVIR 100 MG/NS 250 ML 100 MG/250 ML BAG 250 MG IVPB (10:48)
[2021-02-25] MEDS: SODIUM CHLORIDE 0.9% IV 1,000 ML 100 ML IV CONT (11:08)
[2021-02-25 11:36] LABS: Glucose Point of Care 171 mg/dl (65-105)
[2021-02-25 16:49] LABS: Glucose Point of Care 153 mg/dl (65-105)
[2021-02-25] MEDS: traZODone HCL 50 MG TABLET PO (20:25)
[2021-02-25 20:36] LABS: Glucose Point of Care 196 mg/dl (65-105)
--- NOTE | 2021-02-25 23:59 | PC.NURSE ---
Milagros is abed alert oriented to name place uncertain of date or time. O2 in place. VS within normal limits. Cough moist, no noted production. IV infusing right arm site dry clean without infiltrate symptoms. Encouraged turn deep breath cough tech. No complaints at this time. Call light in reach. Will continue to monitor and observe.
[2021-02-26] VITALS (8 sets, daily range): BP systolic 122–153; BP diastolic 71–84; PULSE 56–80; RESP 16–20; TEMP 36.4–36.8; O2SAT 91–96
--- NOTE | 2021-02-26 02:45 | PC.NURSE ---
Milagros awake TV on conplaint of cold Warm blanket applied. No other complaints. Call light in reach with re-oriented to use. Iv Right forearm Sitec without S/Sx infiltrat or problems, remains infusing without difficulty. Haro Cath patent draining pale zofia urine. Occasional moist cough still noted. Encouraged Turn Cough Deep breathing. Side rails up Call light in reach in working order. No other request , Will continue observation and monitor.
[2021-02-26] MEDS: SODIUM CHLORIDE 0.9% IV 1,000 ML 100 ML IV CONT (03:01)
[2021-02-26 05:22] LABS: Hematocrit 27.2 % (35.0-42.0); Hemoglobin 9.1 g/dL (11.7-13.8); Mean Corpuscular HGB Conc 33.5 g/dL (32.0-36.0); Mean Corpuscular Hemoglobin 30.7 pg (27.0-31.0); Mean Corpuscular Volume 91.9 fL (78.0-102.0); Mean Platelet Volume 12.1 fl (9.2-11.8); Platelet Count Result 123 K/mm3 (150-420); Red Blood Count 2.96 M/mm3 (4.20-5.40); Red Cell Distribution Width 14.6 % (11.6-14.4); White Blood Count 9.2 K/mm3 (4.8-10.8)
[2021-02-26 05:33] LABS: INR 1.1; Prothrombin Time 11.5 Seconds (9.50-12.10)
[2021-02-26 05:45] LABS: Anion Gap 11 mmol/L (8-16); Blood Urea Nitrogen 52 mg/dL (7-18); Calcium 7.7 mg/dL (8.5-10.1); Carbon Dioxide 19 mmol/L (21-32); Chloride 113 mmol/L (98-108); Estimated CRCL calculation 27 ml/min; Estimated Glomerular Filt Rate 35; Glucose 115 mg/dL (70-99); NT Pro B Type Natriuretic Pept 5293 pg/mL (0-450); Osmolality Calculated 311 mOsm/kg (285-295); Potassium 4.2 mmol/L (3.5-5.1); Sodium 143 mmol/L (136-145)
[2021-02-26 05:46] LABS: Alanine Aminotransferase 20 U/L (14-59)
--- NOTE | 2021-02-26 06:36 | PC.NURSE ---
Milagros resting eyes closed respirations even nonlabored. Milagros was awake all night until 5a.-6a.m. Call light in reach, IV without S/Sx infiltrate Haro Cath patent and draining pale zofia urine.
[2021-02-26] MEDS: DEXAMETHASONE SOD PHOS INJ 4 MG/ML VIAL 6 MG IV PUSH (07:54)
[2021-02-26] MEDS: ENOXAPARIN 30 MG/0.3 ML SYRINGE SUB-Q (07:54)
[2021-02-26] MEDS: PREGABALIN (*CRX) 50 MG CAPSULE 150 MG PO (07:55)
[2021-02-26] MEDS: AZITHROMYCIN 250 MG TABLET 500 MG PO (07:56)
[2021-02-26] MEDS: METOPROLOL TARTRATE 50 MG TAB PO ×2 (07:56→20:17)
[2021-02-26] MEDS: SERTRALINE HCL 50 MG TABLET PO (07:56)
[2021-02-26] MEDS: LOSARTAN POTASSIUM 50 MG TABLET 100 MG PO (07:56)
[2021-02-26] MEDS: allopurinoL 100 MG TABLET PO (07:57)
[2021-02-26] MEDS: REMDESIVIR 100 MG/NS 250 ML 100 MG/250 ML BAG 250 MG IVPB (09:08)
--- NOTE | 2021-02-26 10:54 | PM.IMPN ---
Progress Note: A&P Assessment and Plan (1) COVID-19: Code(s): U07.1 - COVID-19 <Miguelito PachecoZBIGNIEW-C - Last Filed: 02/26/21 12:54> Status: Acute <Miguelito PachecoZBIGNIEW-C - Last Filed: 02/26/21 12:54> Assessment and Plan: Remdesivir, Dexamethasone, Rocephin, Azithromycin, Supplemental Oxygen 2L NC, SpO2 93%, Monitoring VS Q4H, Monitoring ALT 16, Cr 1.65, PT/INR 11.2/1.1, Isolation 02/25/2021 ALT 20, Cr 1.90, PT/INR 11.3/1.1, WBC 11.2, continue above regimen, 118/60 HR 61 RR 22, 2L NC 02/26/2021 ALT 20, Cr 1.46, PT/INR 11.5/1.1, WBC 9.2, Continue above, Oxygen demand is resolved at this time Pt on RA, using incentive spirometer <Miguelito PachecoZBIGNIEW-C - Last Filed: 02/26/21 12:54> (2) UTI (urinary tract infection): Code(s): N39.0 - Urinary tract infection, site not specified <Miguelito PinoZBIGNIEW horton-C - Last Filed: 02/26/21 12:54> Status: Acute <Miguelito PinoZBIGNIEW horton-C - Last Filed: 02/26/21 12:54> Assessment and Plan: 02/25/2021 Culture ordered today, Rocephin, 2+ Protein, 3+ Blood, 1+ Bili, 1+ LE, RBC 21-50, WBC 16-20, 2+ Bacteria, Pt does not have symptoms 02/26/2021 Culture pending, Blood Cx NGTD X 2, continue with Rocephin <Miguelito PinoZBIGNIEW horton-C - Last Filed: 02/26/21 12:54> (3) CHF (congestive heart failure): Code(s): I50.9 - Heart failure, unspecified <Miguelito NiLetty Pacheco APN-C - Last Filed: 02/26/21 12:54> Status: Acute <Miguelito Snowden ZBIGNIEW Pacheco-C - Last Filed: 02/26/21 12:54> Assessment and Plan: 02/26/2021 Yesterday P-BNP 2609 and today 5293, No peripheral edema, no rales in lungs just rhonchi in bases, IVF stopped, monitor for fluid overload <Miguelito PachecoZBIGNIEW-C - Last Filed: 02/26/21 12:54> (4) Anemia: Code(s): D64.9 - Anemia, unspecified <Miguelito PinoZBIGNIEW horton-C - Last Filed: 02/26/21 12:54> Status: Acute <Miguelito PachecoZBIGNIEW-C - Last Filed: 02/26/21 12:54> Assessment and Plan: 02/26/2021 H/H last 3 days 10.8, 10.5, 9.1/31.8, 31.2, 27.2 will continue to monitor, transfuse if Hgb drops below 7, no bleeding noticed <Miguelito PinoZBIGNIEW horton-C - Last Filed: 02/26/21 12:54> (5) Hypertension: Code(s): I10 - Essential (primary) hypertension <Miguelito PachecoZBIGNIEW-C - Last Filed: 02/26/21 12:54> Status: Acute <Miguelito PachecoZBIGNIEW-C - Last Filed: 02/26/21 12:54> Assessment and Plan: Continue Losartan, Metoprolol, monitor VS, make adjustments to medications as needed 02/25/2021 VSS, no changes to medications at this time 02/26/2021 BP has been WNL save 1 reading of 153/71, HR 50-70, no changes to medications at this time <Miguelito PinoZBIGNIEW horton-C - Last Filed: 02/26/21 12:54> (6) Type 2 diabetes mellitus: Code(s): E11.9 - Type 2 diabetes mellitus without complications <Miguelito NiLetty Pacheco APN-C - Last Filed: 02/26/21 12:54> Status: Acute <Miguelito NiLetty AlvarezZBIGNIEW horton-C - Last Filed: 02/26/21 12:54> Assessment and Plan: SSI, Diabetic Diet, Bedside Glucose monitoring ACHS, Hypoglycemic protocol in place, make adjustments as needed to medications 02/25/2021 Glucose 149-272, no adjustment to insulin at this time, continue monitoring 02/26/2021 Glucose 102-196, continue with above, no changes at this time <GIUSEPPE Schneider - Last Filed: 02/26/21 12:54> (7) Peripheral neuropathy: Code(s): G62.9 - Polyneuropathy, unspecified <GIUSEPPE Schneider - Last Filed: 02/26/21 12:54> Status: Acute <GIUSEPPE Schneider - Last Filed: 02/26/21 12:54> Assessment and Plan: Continue Pregabalin <GIUSEPPE Schneider - Last Filed: 02/26/21 12:54> (8) Gout: Code(s): M10.9 - Gout, unspecified <GIUSEPPE Schneider - Last Filed: 02/26/21 12:54> Status: Acute <GIUSEPPE Schneider - Last Filed: 02/26/21 12:54> Assessment and Plan: Continue Allopurinol <GIUSEPPE Schneider - Last Filed:
[2021-02-26 11:48] LABS: Glucose Point of Care 102 mg/dl (65-105)
[2021-02-26 17:11] LABS: Glucose Point of Care 138 mg/dl (65-105)
[2021-02-26] MEDS: traZODone HCL 50 MG TABLET PO (20:18)
[2021-02-26 20:38] LABS: Glucose Point of Care 178 mg/dl (65-105)
[2021-02-27] VITALS (12 sets, daily range): BP systolic 110–141; BP diastolic 56–81; PULSE 58–78; RESP 16–20; TEMP 36.4–37.1; O2SAT 83–97
[2021-02-27] MEDS: diphenhydrAMINE HCl CAP 25 MG CAPSULE PO (00:57)
[2021-02-27 05:49] LABS: Hematocrit 36.9 % (35.0-42.0); Hemoglobin 11.7 g/dL (11.7-13.8); Mean Corpuscular HGB Conc 31.7 g/dL (32.0-36.0); Mean Corpuscular Hemoglobin 30.6 pg (27.0-31.0); Mean Corpuscular Volume 96.6 fL (78.0-102.0); Mean Platelet Volume 12.4 fl (9.2-11.8); Platelet Count Result 172 K/mm3 (150-420); Red Blood Count 3.82 M/mm3 (4.20-5.40); Red Cell Distribution Width 15.5 % (11.6-14.4); White Blood Count 15.5 K/mm3 (4.8-10.8)
[2021-02-27 06:02] LABS: INR 1.1; Prothrombin Time 11.4 Seconds (9.50-12.10)
[2021-02-27 06:11] LABS: Alanine Aminotransferase 19 U/L (14-59); Anion Gap 13 mmol/L (8-16); Blood Urea Nitrogen 46 mg/dL (7-18); Calcium 8.6 mg/dL (8.5-10.1); Carbon Dioxide 19 mmol/L (21-32); Chloride 109 mmol/L (98-108); Estimated CRCL calculation 27 ml/min; Estimated Glomerular Filt Rate 35; Glucose 70 mg/dL (70-99); NT Pro B Type Natriuretic Pept 6687 pg/mL (0-450); Osmolality Calculated 301 mOsm/kg (285-295); Potassium 4.3 mmol/L (3.5-5.1); Sodium 141 mmol/L (136-145)
[2021-02-27 07:39] LABS: Troponin I 15.7 ng/L (0.00-60.4)
[2021-02-27] MEDS: ENOXAPARIN 30 MG/0.3 ML SYRINGE SUB-Q (07:57)
[2021-02-27] MEDS: DEXAMETHASONE SOD PHOS INJ 4 MG/ML VIAL 6 MG IV PUSH (07:58)
[2021-02-27] MEDS: LOSARTAN POTASSIUM 50 MG TABLET 100 MG PO (07:59)
[2021-02-27] MEDS: SERTRALINE HCL 50 MG TABLET PO (07:59)
[2021-02-27] MEDS: allopurinoL 100 MG TABLET PO (08:00)
[2021-02-27] MEDS: AZITHROMYCIN 250 MG TABLET 500 MG PO (08:00)
[2021-02-27] MEDS: METOPROLOL TARTRATE 50 MG TAB PO (08:00)
[2021-02-27] MEDS: PREGABALIN (*CRX) 50 MG CAPSULE 150 MG PO (08:00)
[2021-02-27] MEDS: REMDESIVIR 100 MG/NS 250 ML 100 MG/250 ML BAG 250 MG IVPB (09:00)
--- NOTE | 2021-02-27 09:51 | HOMEO2EVAL ---
Evaluation was performed at [facility] Home Oxygen Evaluation RC: Home Oxygen (O2) Evaluation Start: 02/27/21 07:16 Freq: ONCE Status: Active Protocol: RPE Activity Type Activity Date Activity User E-Sign Co-Sign Detail Recorded Client Recorded Date Recorded By Document 02/27/21 08:58 SJB [id number] 02/27/21 09:51 SJB Document 02/27/21 08:59 SJB [id number] 02/27/21 09:51 SJB Document 02/27/21 09:02 SJB [id number] 02/27/21 09:51 SJB Document 02/27/21 09:04 SJB [id number] 02/27/21 09:51 SJB Document 02/27/21 09:06 SJB [id number] 02/27/21 09:51 SJB Document 02/27/21 09:15 SJB [id number] 02/27/21 09:51 SJB 02/27/21 02/27/21 02/27/21 08:58 08:59 09:02 Home O2 Evaluation Test Phase Resting Resting Resting Oxygen Delivery Room Air Nasal Cannula Nasal Cannula Oxygen Flow Rate (L/min) 1 2 Pulse Oximetry (90-100 %) 83 L 84 L 90 Pulse Rate (60-100 beats/min) 63 67 66 Activity Tolerance Rating of Perceived Dyspnea (PD) Rate of Perceived Exertion (PE) 10 Ambulation Distance (feet) Home Oxygen Evaluation Comments Will start on 1 Will increase Will begin walk lpm o2 to 2 lpm , pt seems quite unsteady so a walker was obtained for patient. Treatment Charges O2 Evaluation - Inpatient 02/27/21 02/27/21 02/27/21 09:04 09:06 09:15 Home O2 Evaluation Test Phase Exercise Exercise Exercise Oxygen Delivery Nasal Cannula Nasal Cannula Nasal Cannula Oxygen Flow Rate (L/min) 2 3 4 Pulse Oximetry (90-100 %) 88 L 85 L 97 Pulse Rate (60-100 beats/min) 66 74 67 Activity Tolerance Poor Poor Poor Rating of Perceived Dyspnea (PD) +2 Mild, Some +2 Mild, Some Difficulty, Difficulty, Noticeable to Noticeable to the Observer the Observer Rate of Perceived Exertion (PE) 11 Fairly light 11 Fairly light 11 Fairly light Ambulation Distance (feet) 6 12 20 Home Oxygen Evaluation Comments After 6 ft Pt will be Pt finished walking with increased to 4 walk on 4 lpm walker on 2 lpm lpm. Pt has no maintaining an pt will be complaints of Sp02 in the increased to 3 SOB. Unsteady upper 90s. Pt lpm. PLB gait. has no encouraged. complaints but has a somewhat hard time following directions, ex. leaving her cannula alone in her nose. HR remained WNL . Again gait was very unsteady, used walker and 1 assist, although patient denies having trouble walking. PLB retaught. Patient returned to sitting at side of bed wearing 2 lpm nasal cannula. Treatment Charges
--- NOTE | 2021-02-27 10:42 | PM.DS ---
DS: Admitting Diagnosis Discharge Date 02/27/2021 Admitting Diagnosis COVID, Pneumonia, CHF DS: Discharge Diagnosis Discharge Diagnosis (1) COVID-19: Code(s): U07.1 - COVID-19 Status: Acute Assessment and Plan: Remdesivir, Dexamethasone, Rocephin, Azithromycin, Supplemental Oxygen 2L NC, SpO2 93%, Monitoring VS Q4H, Monitoring ALT 16, Cr 1.65, PT/INR 11.2/1.1, Isolation 02/25/2021 ALT 20, Cr 1.90, PT/INR 11.3/1.1, WBC 11.2, continue above regimen, 118/60 HR 61 RR 22, 2L NC 02/26/2021 ALT 20, Cr 1.46, PT/INR 11.5/1.1, WBC 9.2, Continue above, Oxygen demand is resolved at this time Pt on RA, using incentive spirometer 02/27/2021 Cr 1.46, PT/INR 11.4/1.1, WBC 15 taking steroids, 6 minute walk test indicates Pt with need home oxygen. Pt advised not to smoke while using oxygen. Pt states she is ambulating in the hospital the same as when she is at home, she will have HH PT/OT starting Mar 07, will sent Pt home with a steroid taper pack. (2) UTI (urinary tract infection): Code(s): N39.0 - Urinary tract infection, site not specified Status: Acute Assessment and Plan: 02/25/2021 Culture ordered today, Rocephin, 2+ Protein, 3+ Blood, 1+ Bili, 1+ LE, RBC 21-50, WBC 16-20, 2+ Bacteria, Pt does not have symptoms 02/26/2021 Culture pending, Blood Cx NGTD X 2, continue with Rocephin 02/27/2021 Pt has had 3 doses of Rocephin, Urine Cx from 02/25/2021 shows No Growth, Blood Cx NGTD (3) CHF (congestive heart failure): Code(s): I50.9 - Heart failure, unspecified Status: Acute Assessment and Plan: 02/26/2021 Yesterday P-BNP 2609 and today 5293, No peripheral edema, no rales in lungs just rhonchi in bases, IVF stopped, monitor for fluid overload 02/27/2021 Lung sounds good, a bit diminished in the bases. Home oxygen test performed and Pt will have home O2 (4) Anemia: Code(s): D64.9 - Anemia, unspecified Status: Acute Assessment and Plan: 02/26/2021 H/H last 3 days 10.8, 10.5, 9.1/31.8, 31.2, 27.2 will continue to monitor, transfuse if Hgb drops below 7, no bleeding noticed 02/27/2021 H/H 11.7/36.9 (5) Hypertension: Code(s): I10 - Essential (primary) hypertension Status: Acute Assessment and Plan: Continue Losartan, Metoprolol, monitor VS, make adjustments to medications as needed 02/25/2021 VSS, no changes to medications at this time 02/26/2021 BP has been WNL save 1 reading of 153/71, HR 50-70, no changes to medications at this time 02/27/2021 VSS, no medication changes made. (6) Type 2 diabetes mellitus: Code(s): E11.9 - Type 2 diabetes mellitus without complications Status: Acute Assessment and Plan: SSI, Diabetic Diet, Bedside Glucose monitoring ACHS, Hypoglycemic protocol in place, make adjustments as needed to medications 02/25/2021 Glucose 149-272, no adjustment to insulin at this time, continue monitoring 02/26/2021 Glucose 102-196, continue with above, no changes at this time 02/27/2021 Glucose 70-178 (7) Peripheral neuropathy: Code(s): G62.9 - Polyneuropathy, unspecified Status: Acute Assessment and Plan: Continue Pregabalin (8) Gout: Code(s): M10.9 - Gout, unspecified Status: Acute Assessment and Plan: Continue Allopurinol DS: Summary Hospital Course Hospital Course: Pt has done well, never had SOB once she came to the floor, she has been on RA at times while at rest, home oxygen test was performed and Pt will need home O2, Pt is a smoker, She was advised NOT to smoke while using oxygen. Time Spent with Patient Time attestation: Total time spent providing and/or coordinating discharge services: < 30 minutes Exam Const: General: cooperative, comfortable, no acute distress, alert, awake and Physically active Nutritional Appearance: average body habitus Resp: Effort & Inspection: normal respiratory effort Auscultation: diminished lung sounds (posterior bases) Cardio: Rate: regular rate Heart sounds: S1 no
[2021-02-27 12:10] LABS: Glucose Point of Care 134 mg/dl (65-105)
--- NOTE | 2021-03-06 13:51 | PC.NURSE ---
Unable to contact for discharge call back.
== END 2021-02-27 16:10 | disposition home health service (06) | DRG 177 ==
LOC: CHSED 08:53 → CHS2ND 08:54
PROVIDERS: Admitting Provider Emergency Medicine; Emergency Provider Emergency Medicine; PCP Internal Medicine; Visit Provider Nurse Practitioner Family
DX: U07.1 COVID-19 (principal); J12.82 Pneumonia due to coronavirus disease 2019; N39.0 Urinary tract infection, site not specified; I10 Essential (primary) hypertension; E11.42 Type 2 diabetes mellitus with diabetic polyneuropathy; M19.90 Unspecified osteoarthritis, unspecified site; M10.9 Gout, unspecified; F17.210 Nicotine dependence, cigarettes, uncomplicated
CPT/HCPCS: 36415; 36600; 71250; 80048; 80053; 81001; 82805; 82948; 83880; 84460; 84484; 85025; 85027; 85610; 87040; 87086; 87426; 87804; 93005; 94618; 96361; 96365; 96375; 99285; A9270; C9803; J0696; J1100; J1650; J1815; J1940; J2930; J7030; J7040

== ENCOUNTER 2021-03-10 13:46 | Outpatient (CLI) | payer MEDICARE, SELFPAY ==
--- NOTE | ~2021-03-10 | XR_ITS ---
XR chest 2V DATE: 03/10/2021 14:46 INDICATION: Covid pneumonia. Shortness of breath. TECHNIQUE: 2 views COMPARISON: 02/18/2021 portable AP chest 02/24/2021 CT chest FINDINGS: Normal heart size. Aortic arch calcification, minimal aortic tortuosity. No hilar or medias tinal enlargement is evident. There is minimal infiltrate or atelectasis at the lung bases, greater on the left. No pleural effusio n or pulmonary vascular congestion or pneumothorax. Diffuse osteopenia. Degenerative spurring of the thoracic spine. IMPRESSION: Minimal infiltrate or atelectasis at the lung bases, left greater than right Reviewed, dictated and finalized at location A. IMPRESSION: Minimal infiltrate or atelectasis at the lung bases, left greater t neri right
[2021-03-10 14:19] LABS: Basophils Absolute Auto 0.05 K/mm3 (0.00-0.10); Basophils Percent Auto 0.4 % (0.0-1.0); Eosinophils Absolute Auto 0.08 K/mm3 (0.02-0.50); Eosinophils Percent Auto 0.7 % (1.0-6.0); Hematocrit 30.9 % (35.0-42.0); Hemoglobin 10.2 g/dL (11.7-13.8); Immature Granulocyte Absolute 0.09 K/mm3 (0.00-0.00); Immature Granulocyte Percent A 0.8 % (0.0-0.0); Lymphocytes Absolute Auto 1.82 K/mm3 (1.10-4.50); Lymphocytes Percent Auto 15.5 % (18.0-42.0); Mean Corpuscular Hemoglobin 31.1 pg (27.0-31.0); Mean Corpuscular Volume 94.2 fL (78.0-102.0); Mean Platelet Volume 11.1 fl (9.2-11.8); Monocytes Percent Auto 8.5 % (2.0-11.0); Neutrophils Absolute Auto 8.7 K/mm3 (1.7-7.2); Neutrophils Percent Auto 74.1 % (50.0-70.0); Platelet Count Result 169 K/mm3 (150-420); Red Blood Count 3.28 M/mm3 (4.20-5.40); Red Cell Distribution Width 14.7 % (11.6-14.4); White Blood Count 11.7 K/mm3 (4.8-10.8)
[2021-03-10 14:30] LABS: Alanine Aminotransferase 19 U/L (14-59); Albumin Level 2.3 g/dL (3.4-5.0); Alkaline Phosphatase 139 U/L (46-116); Anion Gap 9 mmol/L (8-16); Aspartate Amino Transferase 17 U/L (15-37); Bilirubin,Total 0.6 mg/dL (0.00-1.00); Blood Urea Nitrogen 22 mg/dL (7-18); Carbon Dioxide 27 mmol/L (21-32); Chloride 101 mmol/L (98-108); Estimated Glomerular Filt Rate 28; Glucose 103 mg/dL (70-99); Osmolality Calculated 287 mOsm/kg (285-295); Potassium 4.9 mmol/L (3.5-5.1); Sodium 137 mmol/L (136-145); Total Protein 7.5 g/dL (6.4-8.2)
== END 2021-03-10 13:47 | disposition home or self-care (01) ==
PROVIDERS: PCP Internal Medicine; Visit Provider Internal Medicine
DX: J44.0 Chronic obstructive pulmonary disease with (acute) lower respiratory infection (principal); J18.9 Pneumonia, unspecified organism; N39.0 Urinary tract infection, site not specified
CPT/HCPCS: 36415; 71046; 80053; 85025

== ENCOUNTER 2021-03-24 09:20 | Outpatient (CLI) | payer MEDICARE, SELFPAY ==
[2021-03-24 09:35] LABS: Add Urine Microscopic? YES; Appearance Urine Clear (Clear); Bilirubin Urine Negative (Negative); Blood Urine 3+ (Negative); Color Urine Light Yellow (Yellow); Glucose Urine UA Negative (Negative); Ketones Urine Negative (Negative); Leukocyte Esterase Ur 1+ (Negative); Nitrate Urine Negative (Negative); Protein Urine Negative (Negative); Specific Grav Ur <= 1.005 (1.010-1.020); Urobilinogen Urine 0.2 mg/dL (0.2-1.0)
[2021-03-24 09:45] LABS: Bacteria Urine 1+ /hpf; RBC Urine 51-75 /hpf (0-2); Squamous Epithelial Cell Urine Few /hpf (Few); WBC Urine 16-20 /hpf (0-3)
[2021-03-24 11:38] LABS: Basophils Absolute Auto 0.02 K/mm3 (0.00-0.10); Basophils Percent Auto 0.3 % (0.0-1.0); Eosinophils Absolute Auto 0.22 K/mm3 (0.02-0.50); Eosinophils Percent Auto 3.7 % (1.0-6.0); Hematocrit 31.2 % (35.0-42.0); Hemoglobin 10.2 g/dL (11.7-13.8); Immature Granulocyte Absolute 0.03 K/mm3 (0.00-0.00); Immature Granulocyte Percent A 0.5 % (0.0-0.0); Lymphocytes Absolute Auto 1.72 K/mm3 (1.10-4.50); Lymphocytes Percent Auto 29.2 % (18.0-42.0); Mean Corpuscular HGB Conc 32.7 g/dL (32.0-36.0); Mean Corpuscular Hemoglobin 31.3 pg (27.0-31.0); Mean Corpuscular Volume 95.7 fL (78.0-102.0); Mean Platelet Volume 11.3 fl (9.2-11.8); Monocytes Absolute Auto 0.54 K/mm3 (0.10-0.90); Monocytes Percent Auto 9.2 % (2.0-11.0); Neutrophils Absolute Auto 3.4 K/mm3 (1.7-7.2); Neutrophils Percent Auto 57.1 % (50.0-70.0); Platelet Count Result 120 K/mm3 (150-420); Red Blood Count 3.26 M/mm3 (4.20-5.40); Red Cell Distribution Width 14.9 % (11.6-14.4); White Blood Count 5.9 K/mm3 (4.8-10.8)
[2021-03-24 12:18] LABS: Anion Gap 9 mmol/L (8-16); Blood Urea Nitrogen 25 mg/dL (7-18); Calcium 8.5 mg/dL (8.5-10.1); Carbon Dioxide 27 mmol/L (21-32); Chloride 100 mmol/L (98-108); Estimated Glomerular Filt Rate 24; Glucose 135 mg/dL (70-99); Osmolality Calculated 288 mOsm/kg (285-295); Potassium 4.4 mmol/L (3.5-5.1); Sodium 136 mmol/L (136-145)
== END 2021-03-24 09:21 | disposition home or self-care (01) ==
PROVIDERS: PCP Internal Medicine; Visit Provider Internal Medicine
DX: N18.4 Chronic kidney disease, stage 4 (severe) (principal); N39.0 Urinary tract infection, site not specified
CPT/HCPCS: 36415; 80048; 81001; 85025; 87086

== ENCOUNTER 2021-03-25 17:16 | Inpatient (IN) | payer MEDICARE, SELFPAY ==
[2021-03-25] VITALS (9 sets, daily range): BP systolic 70–146; BP diastolic 38–75; PULSE 60–86; RESP 12–18; TEMP 36.2–37.1; O2SAT 95–100; BMI 20.5
--- NOTE | ~2021-03-25 | CT_ITS ---
EXAMINATION: CT abdomen pelvis wo con DATE: 03/25/2021 18:56 INDICATION: Sepsis, history of nephrolithiasis TECHNIQUE: Computed tomography (CT) of the abdomen and pelvis was performed without intravenous contr ast. The dose-length product (DLP) was 763.83 mGy-cm. Automated exposure control and iterative recons truction technique were employed. COMPARISON: 02/15/2019 FINDINGS: Minimal dependent atelectasis is present in the lung bases. The heart size is normal. Punct ate calcifications in an otherwise normal liver likely represent healed granulomatous disease. The sp zane, pancreas, and left adrenal gland are normal. The right adrenal gland demonstrates calcification , likely related to prior infection or infarction. The gallbladder is absent. The kidneys are unremar kable. No stones are identified in the kidneys, ureters, or bladder. There is no hydronephrosis or hy droureter. No pathologically enlarged abdominal or pelvic lymph nodes are identified. There is no daisy e intraperitoneal gas or evidence of bowel obstruction. There is calcified atherosclerosis of the aor ta and many of the other arteries. A moderate volume of colonic stool is present. There is severe tho racic and lumbar spondylosis. IMPRESSION: 1. No CT correlate for the patient's symptoms. Reviewed, dictated and finalized at location A.
--- NOTE | ~2021-03-25 | XR_ITS ---
EXAMINATION: XR chest 1V portable INDICATION: Sepsis TECHNIQUE: Portable AP chest at 1814 hours COMPARISON: 03/10/2021 FINDINGS: The lungs are free of acute opacities. There is no pleural effusion or pneumothorax. The ca rdiomediastinal silhouette is normal. The visualized bones and soft tissues are unremarkable. IMPRESSION: 1. No acute cardiopulmonary abnormality. Reviewed, dictated and finalized at location A.
--- NOTE | ~2021-03-25 | CT_ITS ---
EXAMINATION: CT brain wo con INDICATION: Confusion after fall COMPARISON: 02/18/2021 TECHNIQUE: Standard unenhanced head CT. The dose-length product (DLP) was 605.33 mGy-cm. The mA was a djusted according to patient size. Iterative reconstruction technique was employed. FINDINGS: There is no acute intraparenchymal hemorrhage. No evidence of mass lesion. No evidence of a cute infarction. 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 There is mild periventricular and subcortical hypodensity probably related to small vessel ischemic disease. There is mild prominence of the sulci and ventricles related to cerebral atrophy. Intracranial calcified cerebral atherosclero sis is noted. There are no extra-axial collections. There is no mass effect or midline shift. Changes in the globes are likely from ocular lens surgery. The visualized sinuses and mastoid air cells are well aerated. IMPRESSION: 1. Areas of prior infarction without acute intracranial abnormality. 2. Age related findings. Reviewed, dictated and finalized at location A.
--- NOTE | 2021-03-25 17:56 | ECG_ITS ---
Measurements Intervals [place] Rate: 59 P: -52 [place]: 63 QRS: -58 QRSD: 99 T: 79 QT: 393 QTc: 391 Interpretive Statements SINUS BRADYCARDIA WITH FIRST DEGREE AV BLOCK RIGHT BUNDLE BRANCH BLOCK LEFT ANTERIOR FASCICULAR BLOCK BASELINE ARTIFACT- I, II, V4 ABNORMAL ECG Electronically Signed On 03-25-2021 20:12:33 CDT by Jose Baker D.O.
[2021-03-25 18:14] LABS: Basophils Percent Auto 0.4 % (0.2-1.2); Eosinophils Absolute Auto 0.3 K/mm3 (0-0.3); Eosinophils Percent Auto 3.7 % (0-4.4); Hematocrit 28.3 % (37.0-47.0); Immature Granulocyte Absolute 0.03 K/mm3 (0.00-0.031); Immature Granulocyte Percent A 0.4 % (0-0.5); Lymphocytes Absolute Auto 2.12 K/mm3 (0.9-3.2); Lymphocytes Percent Auto 27.3 % (18.3-44.2); Mean Corpuscular HGB Conc 31.8 g/dl (32-36); Mean Corpuscular Hemoglobin 31.4 pg (26-34); Mean Corpuscular Volume 98.6 fl (80-100); Mean Platelet Volume 11.4 fl (7.4-10.4); Monocytes Absolute Auto 0.7 K/mm3 (0.1-0.6); Monocytes Percent Auto 8.9 % (2.6-8.5); Neutrophils Absolute Auto 4.6 K/mm3 (1.3-6.7); Neutrophils Percent Auto 59.3 % (45.5-73.1); Platelet Count Result 119 k/mm3 (150-375); Red Blood Count 2.87 M/mm3 (4.2-5.4); Red Cell Distribution Width 15.2 % (11.5-14.5); White Blood Count 7.8 K/mm3 (4.5-10.0)
[2021-03-25 18:30] LABS: Alanine Aminotransferase 9 U/L (4-35); Albumin Level 3.2 g/dL (3.5-5.1); Alkaline Phosphatase 142 U/L (38-126); Anion Gap 7 mmol/L (8-16); Aspartate Amino Transferase 21 U/L (14-36); Bilirubin,Total 0.5 mg/dL (0.2-1.3); Blood Urea Nitrogen 26 mg/dL (7-17); Calcium 8.5 mg/dL (8.4-10.2); Carbon Dioxide 26 mmol/L (22-30); Chloride 103 mmol/L (98-107); Estimated CRCL calculation 18 ml/min; Estimated Glomerular Filt Rate 23; Glucose 128 mg/dL (65-110); Potassium 4.2 mmol/L (3.4-5.0); Sodium 136 mmol/L (137-145)
--- NOTE | 2021-03-25 18:30 | ED.SOB ---
HPI - SOB/Dyspnea General Chief Complaint: Urogenital-Female Stated Complaint: confusion, HH nurse thinks I have UTI Time Seen by Provider: 03/25/21 18:19 Source: patient and RN notes reviewed Mode of arrival: ambulatory Limitations: no limitations History of Present Illness HPI Narrative: Patient is a 75-year-old female who presents with her noting that she has had confusion and frequent falls has been evaluated for urinary tract infection has been on a few rounds of antibiotics currently on nitrofurantoin she was seen by primary care yesterday Dr. Bose in [place]. Patient has been having frequent falls and is unsteady per her last fall was a several days ago she presents with a contusion to the left side of the face with other various contusions to the extremities. On arrival to emergency department she is nontoxic-appearing nondistressed denying any pain ANO x3. notes that she has been more confused off and on during last several weeks. Related Data Home Medications Medication Instructions Recorded Confirmed alendronate 70 mg PO WEEKLY 05/07/19 02/24/21 allopurinol 100 mg PO DAILY 05/07/19 02/24/21 losartan 100 mg PO DAILY 05/07/19 02/24/21 metoprolol tartrate 50 mg PO BID 05/07/19 02/24/21 pregabalin 150 mg PO DAILY 05/07/19 02/24/21 sertraline 50 mg PO DAILY 05/07/19 02/24/21 oxybutynin chloride 10 mg PO DAILY 02/24/21 02/24/21 trazodone 50 mg PO DAILY 02/24/21 02/24/21 nitrofurantoin monohyd/m-cryst 03/25/21 03/25/21 Allergies Allergy/AdvReac Type Severity Reaction Status Date / Time codeine AdvReac Chest Pain Verified 03/25/21 18:54 Review of Systems Review of Systems: All systems reviewed & are unremarkable except as noted in HPI and below PMFSH Past Medical History Medical History Arthritis Gout Hypertension Peripheral neuropathy Type 2 diabetes mellitus Surgical History Surgical History History of appendectomy History of hysterectomy Social History Social History Smoking packs per day: 0.5 Smoking cigarettes per day: 10.0 Years smoked: 40 Smoking pack-years: 20.00 Smoking status: Current every day smoker Tobacco type: cigarettes Alcohol intake: never Substance use: never Substance use type: does not use Gender identity (if verbalized by the patient): Female Spiritual care concerns: No Exam Narrative: GENERAL: Well-appearing, well-nourished, and in no acute distress. HEAD: Normocephalic, contusion of the left brow. EYES: PERRLA and EOMI. ENT: Nares clear, no rhinorrhea or epistaxis. Mucous membranes moist. NECK: Supple. No adenopathy or masses. CHEST: Clear to auscultation. No respiratory distress. No wheezes rales or rhonchi HEART: Regular rate and rhythm. No murmur heard. Normal peripheral pulses. ABDOMEN: Soft, nontender, nondistended EXTREMITIES: Normal range of motion. No edema. Contusion left lower extremity at the level of the knee SKIN: Warm, dry, no rash. NEURO: No focal deficits. Alert and oriented x3. Cranial nerves II through XII grossly intact PSYCH: Normal mood and affect. Course Course Emergency Course: Patient will be hospitalized for dehydration urinary tract infection blood work and imaging was obtained she is hemodynamically stable she and her family agree with the treatment plan Consultations Consultation #1: Discussion was made with the hospitalist who has agreed to accept the patient Date: 03/25/21 Time: 20:31 Vital Signs Vital signs: Vital Signs Temperature 97.2 F L 03/25/21 17:50 Pulse Rate 60 03/25/21 17:50 Respiratory Rate 18 03/25/21 17:50 Blood Pressure 70/38 L 03/25/21 17:50 Pulse Oximetry 100 03/25/21 17:50 Temperature 98.7 F 03/25/21 19:29 Pulse Rate 65 03/25/21 19:29 Respiratory Rate 14 03/25/21 19:29
[2021-03-25 19:02] LABS: Partial Thromboplastin Time 27.7 SECONDS (22.3-36.8)
[2021-03-25] MEDS: SODIUM CHLORIDE 0.9% IV 1,000 ML 999 ML IV CONT (19:10)
--- NOTE | 2021-03-25 19:30 | PC.NURSE ---
provided pt. with discharge instructions and edu. pt. released into care of self.
[2021-03-25 19:42] LABS: Add Urine Microscopic? YES; Appearance Urine Cloudy (Clear); Bilirubin Urine Negative (Negative); Blood Urine 2+ (Negative); Color Urine Yellow (Yellow); Glucose Urine UA Negative (Negative); Ketones Urine Negative (Negative); Leukocyte Esterase Ur 1+ LEU/UL (Negative); Mucus Urine Rare /lpf; Nitrate Urine Negative (Negative); Protein Urine Negative (Negative); RBC Urine 21-50 /hpf (0-2); Specific Grav Ur 1.009 (1.001-1.035); Squamous Epithelial Cell Urine Rare /hpf (Few); Urobilinogen Urine Negative mg/dL (<2.0); WBC Urine 16-20 /hpf
--- NOTE | 2021-03-25 21:45 | PC.NURSE ---
contacted pt. daughter Renay [phone]
--- NOTE | 2021-03-25 22:26 | ADMGEN ---
This patient, Kelly Stone, was admitted to 3 [facility] Surg Room 300-01. Patient/family oriented to hospital policies and general routines including ID bracelet, bed and alarms, visiting hours, pain management, procedures, bathroom and other care routines, personal items, smoking policy, room service/diet, and visiting hours. Information on how to activate the Rapid Response Team has been discussed. Patient/Family are encouraged to report perceived risks to care and to ask questions if they do not understand what they are told or what they should do.
[2021-03-25] MEDS: LACTATED RINGERS 1,000 ML 125 ML IV CONT (23:16)
[2021-03-25] MEDS: FAMOTIDINE 20 MG/2 ML VIAL IV PUSH (23:44)
--- NOTE | 2021-03-25 23:47 | PM.IMHP ---
H&P: HPI History of Present Illness Date/Time: 03/25/21 23:47 Chief Complaint: Confusion frequent fall Narrative: Patient is a 75-year-old female who presents with her noting that she has had confusion and frequent falls that started since today. She has been recently been advised evaluated with urinary tract infection and has been getting couple rounds of antibiotics already with Levaquin and nitrofurantoin as charted. This is given by her primary care doctor Dr. Bose in [place]. She has been feeling dizzy and woozy and weak and also had a fall twice at 1st at 11:00 a.m. and next at 1:00 a.m.. He denies any loss of consciousness with these falls. Jose states she felt weak and woozy and she she fell. She reports she hit her head but did not lose of consciousness. She presents with contusions to her left side of face with various other contusions to the extremities. Per she is also noted to be confused on and off for the past few days. Initial blood pressure in the ER was noted to be low which is unclear whether it is true or all as rest of the blood pressure has been normal. She was noted to have UTI and had failed outpatient treatment and hence getting admitted for further evaluation Review of Systems Review of Systems: - CONSTITUTIONAL: Denies weight loss, fever and chills. - HEENT: Denies changes in vision and hearing - RESPIRATORY: Denies SOB and cough. - CV: Denies palpitations and CP. - GI: Denies abdominal pain, nausea, vomiting and diarrhea. - : Reports dysuria and urinary frequency. - MSK: Denies myalgia and joint pain. - SKIN: Denies rash and pruritus. - NEUROLOGICAL: Denies headache and syncope. He reports dizziness and generalized weakness - PSYCHIATRIC: Denies recent changes in mood. Denies anxiety and depression. All systems reviewed & are unremarkable except as noted in HPI and below Constitutional: Constitutional: Reports fatigue and Reports weakness Neurologic: Reports weakness Endocrine: Endocrine: Reports fatigue PMFSH Past Medical History Medical History Arthritis Gout Hypertension Peripheral neuropathy Type 2 diabetes mellitus Surgical History Surgical History History of appendectomy History of hysterectomy Social History Social History Smoking packs per day: 0.5 Smoking cigarettes per day: 10.0 Years smoked: 40 Smoking pack-years: 20.00 Smoking status: Former smoker Tobacco type: cigarettes Smoking end date: 03/04/21 Alcohol intake: never Substance use: never Substance use type: does not use Gender identity (if verbalized by the patient): Female Spiritual care concerns: No Meds Home Medications and Allergies Home Medications Medication Instructions Recorded Confirmed Type alendronate 70 mg PO WEEKLY 05/07/19 03/25/21 History allopurinol 100 mg PO DAILY 05/07/19 03/25/21 History losartan 100 mg PO DAILY 05/07/19 03/25/21 History metoprolol tartrate 50 mg PO BID 05/07/19 03/25/21 History pregabalin 150 mg PO DAILY 05/07/19 03/25/21 History sertraline 50 mg PO DAILY 05/07/19 03/25/21 History oxybutynin chloride 10 mg PO DAILY 02/24/21 03/25/21 History trazodone 50 mg PO DAILY 02/24/21 03/25/21 History Allergies Allergy/AdvReac Type Severity Reaction Status Date / Time codeine AdvReac Chest Pain Verified 03/25/21 18:54 Vital Signs Vital Signs - 24 hr 03/25/21 17:50 03/25/21 18:43 03/25/21 19:00 Temperature 97.2 F L Pulse Rate 60 62 61 Respiratory Rate 18 16 16 Blood Pressure 70/38 L 120/57 L 117/61 Pulse Oximetry 100 98 100 03/25/21 19:29 03/25/21 21:10 03/25/21 21:12 Temperature 98.7 F Pulse Rate 65 67 68 Respiratory Rate 14 14 Blood Pressure 118/63 145/62 H 137/68 Pulse Oximetry 98 97 03/25/21 21:15 03/25/21 22:00 03/25
[2021-03-26 06:00] VITALS: BP 137/74; PULSE 68; RESP 16; TEMP 36.4; O2SAT 95
[2021-03-26 06:23] LABS: Basophils Percent Auto 0.5 % (0.2-1.2); Eosinophils Absolute Auto 0.2 K/mm3 (0-0.3); Eosinophils Percent Auto 4.8 % (0-4.4); Hematocrit 27.5 % (37.0-47.0); Hemoglobin 8.8 g/dL (12.0-15.0); Immature Granulocyte Absolute 0.02 K/mm3 (0.00-0.031); Immature Granulocyte Percent A 0.5 % (0-0.5); Lymphocytes Absolute Auto 1.37 K/mm3 (0.9-3.2); Lymphocytes Percent Auto 31.6 % (18.3-44.2); Mean Corpuscular Hemoglobin 31.3 pg (26-34); Mean Corpuscular Volume 97.9 fl (80-100); Mean Platelet Volume 12.3 fl (7.4-10.4); Monocytes Absolute Auto 0.5 K/mm3 (0.1-0.6); Monocytes Percent Auto 10.6 % (2.6-8.5); Neutrophils Absolute Auto 2.3 K/mm3 (1.3-6.7); Platelet Count Result 86 k/mm3 (150-375); Red Blood Count 2.81 M/mm3 (4.2-5.4); White Blood Count 4.3 K/mm3 (4.5-10.0)
[2021-03-26] MEDS: LACTATED RINGERS 1,000 ML 75 ML IV CONT ×2 (06:25→20:37)
[2021-03-26 06:52] LABS: Anion Gap 6 mmol/L (8-16); Blood Urea Nitrogen 23 mg/dL (7-17); Calcium 8.3 mg/dL (8.4-10.2); Carbon Dioxide 25 mmol/L (22-30); Chloride 109 mmol/L (98-107); Estimated CRCL calculation 19 ml/min; Estimated Glomerular Filt Rate 24; Glucose 129 mg/dL (65-110); Potassium 4.1 mmol/L (3.4-5.0); Sodium 140 mmol/L (137-145)
[2021-03-26] MEDS: allopurinoL 100 MG TABLET PO (08:47)
[2021-03-26] MEDS: ALENDRONATE SODIUM 70 MG TABLET PO (08:47)
[2021-03-26 08:48] VITALS: PULSE 68
[2021-03-26] MEDS: METOPROLOL TARTRATE 50 MG TAB PO ×2 (08:48→20:33)
[2021-03-26] MEDS: SERTRALINE HCL 50 MG TABLET PO (08:48)
[2021-03-26] MEDS: FAMOTIDINE 20 MG/2 ML VIAL IV PUSH ×2 (08:50→20:34)
[2021-03-26] MEDS: HEPARIN SODIUM 5,000 UNITS/ML VIAL 5000 UNITS SUB-Q ×2 (08:56→20:34)
[2021-03-26] MEDS: PREGABALIN (*CRX) 50 MG CAPSULE 100 MG PO (08:56)
[2021-03-26 09:39] VITALS: O2SAT 92
[2021-03-26 14:00] VITALS: BP 140/60; PULSE 68; RESP 14; TEMP 36.6; O2SAT 90
--- NOTE | 2021-03-26 20:19 | PM.IMPN ---
Progress Note: A&P Assessment and Plan (1) Chronic kidney disease, stage 3: Code(s): N18.30 - Chronic kidney disease, stage 3 unspecified Status: Acute (2) Smoking: Code(s): F17.200 - Nicotine dependence, unspecified, uncomplicated Status: Acute (3) Hypertension: Code(s): I10 - Essential (primary) hypertension Status: Acute (4) Obesity: Code(s): E66.9 - Obesity, unspecified Status: Acute (5) Type 2 diabetes mellitus: Code(s): E11.9 - Type 2 diabetes mellitus without complications Status: Acute (6) CHF (congestive heart failure): Code(s): I50.9 - Heart failure, unspecified Status: Acute (7) Anemia: Code(s): D64.9 - Anemia, unspecified Status: Acute (8) Urinary tract infection: Code(s): N39.0 - Urinary tract infection, site not specified Status: Acute (9) Acute dehydration: Code(s): E86.0 - Dehydration Status: Acute (10) Acute kidney injury: Code(s): N17.9 - Acute kidney failure, unspecified Status: Acute (11) Thrombocytopenia: Code(s): D69.6 - Thrombocytopenia, unspecified Status: Acute Assessment and Plan: 03/25/21 # urinary tract infection Rocephin fail outpatient treatment at received nitrofurantoin and Levaquin course as an outpatient basis follow cultures here # frequent falls PT OT # generalized weakness PT OT # dehydration IV fluid # BETTY and CKD stage 3 baseline creatinine around 1.4 best recently seen currently at 2.1 hold losartan # recent diagnosis of COVID pneumonia treated at [facility] # congestive heart failure well compensated currently # chronic anemia no active sign of bleeding monitor counts # hypertension hold losartan but resume metoprolol # type 2 diabetes mellitus # peripheral neuropathy # Grout # coronary artery disease # thrombocytopenia # DVT prophylaxis heparin subQ # full code status 03/26/[address] Knutson to review outpt culture results [phone] ext [phone], deferred to hospitalist x tomorrow UTI w pyuria but no growth on outpt culture (sterile pyuria??) will cont to treat pending our inpt culture results cont home meds ISS rocephin for now Subjective Date/time seen: 03/26/21 20:19 Patient doing okay alert oriented x3 at the time my interview Without complaint Exam Narrative: GEN: NAD, AAOx3, cooperative HEENT: NCAT, MMM, EOMI Neck: no JVD Heart: S1S2 RRR Lungs: CTA B/l Abd: soft, NT, ND, bowel sounds normoactive Ext: moves all, no cyanosis, no clubbing, no edema Neuro: Cranial nerves intact no focal neurological deficits appreciated on gross examination Psych: Mood and affect congruent Objective Data Vital Signs Vital Signs: Vital Signs - 24 hr 03/25/21 21:10 03/25/21 21:12 03/25/21 21:15 Temperature Pulse Rate 67 68 68 Respiratory Rate 14 Blood Pressure 145/62 H 137/68 95/61 L Pulse Oximetry 97 03/25/21 22:00 03/25/21 22:50 03/26/21 06:00 Temperature 97.3 F L 97.5 F L Pulse Rate 64 86 68 Respiratory Rate 12 16 16 Blood Pressure 126/64 134/75 137/74 Pulse Oximetry 100 95 95 03/26/21 08:48 03/26/21 09:39 03/26/21 14:00 Temperature 98 F Pulse Rate 68 68 Respiratory Rate 14 Blood Pressure 140/60 Pulse Oximetry 92 90 Intake/Output Intake/Output: Intake & Output 03/23/21 03/24/21 03/25/21 03/26/21 23:59 23:59 23:59 23:59 Intake Total 1050 2020 Output Total 500 Balance 550 2020 Meds/Results Medications: Active Medications Generic Name Dose Route Start Last Admin Trade Name Leigh PRN Reason Stop Dose Admin Alendronate Sodium 70 mg 04/01/21 07:30 Alendronate Sodium 70 Mg Tablet PO WEEKLY@0730 [facility] Allopurinol 100 mg 03/26/21 08:00 03/26/21 08:47 Allopurinol 100 Mg Tablet PO 100 mg DAILY@0800 [facility] Administration Famotidine 20 mg 03/25/21 21:00 03/26/21 08:50 Famotidine 20 Mg/2 Ml Vial IV PUSH 20 mg Q12HR
[2021-03-26 20:33] VITALS: PULSE 68
[2021-03-26] MEDS: traZODone HCL 50 MG TABLET PO (20:33)
[2021-03-26] MEDS: PREGABALIN (*CRX) 50 MG CAPSULE PO (20:34)
[2021-03-26 21:28] VITALS: BP 116/83; PULSE 103; RESP 18; TEMP 36.7; O2SAT 99
[2021-03-27 05:37] VITALS: BP 135/86; PULSE 53; RESP 18; TEMP 36.6; O2SAT 99
[2021-03-27 06:52] LABS: Basophils Percent Auto 0.6 % (0.2-1.2); Eosinophils Absolute Auto 0.2 K/mm3 (0-0.3); Eosinophils Percent Auto 4.8 % (0-4.4); Hematocrit 28.3 % (37.0-47.0); Hemoglobin 9.1 g/dL (12.0-15.0); Immature Granulocyte Absolute 0.02 K/mm3 (0.00-0.031); Immature Granulocyte Percent A 0.4 % (0-0.5); Immature Platelet Fraction Pct 4.4 % (0.9-11.2); Mean Corpuscular HGB Conc 32.2 g/dl (32-36); Mean Corpuscular Hemoglobin 30.7 pg (26-34); Mean Corpuscular Volume 95.6 fl (80-100); Mean Platelet Volume 12.2 fl (7.4-10.4); Monocytes Absolute Auto 0.5 K/mm3 (0.1-0.6); Monocytes Percent Auto 9.4 % (2.6-8.5); Neutrophils Absolute Auto 2.5 K/mm3 (1.3-6.7); Neutrophils Percent Auto 50.8 % (45.5-73.1); Platelet Count Result 81 k/mm3 (150-375); Red Blood Count 2.96 M/mm3 (4.2-5.4); Red Cell Distribution Width 14.9 % (11.5-14.5)
[2021-03-27 06:55] LABS: Alanine Aminotransferase 10 U/L (4-35); Albumin Level 3.1 g/dL (3.5-5.1); Alkaline Phosphatase 146 U/L (38-126); Anion Gap 7 mmol/L (8-16); Aspartate Amino Transferase 22 U/L (14-36); Bilirubin,Total 0.2 mg/dL (0.2-1.3); Blood Urea Nitrogen 23 mg/dL (7-17); Calcium 8.6 mg/dL (8.4-10.2); Carbon Dioxide 26 mmol/L (22-30); Chloride 106 mmol/L (98-107); Estimated CRCL calculation 18 ml/min; Estimated Glomerular Filt Rate 23; Glucose 76 mg/dL (65-110); Magnesium 1.8 mg/dL (1.6-2.3); Potassium 4.6 mmol/L (3.4-5.0); Sodium 139 mmol/L (137-145)
[2021-03-27 07:43] LABS: Glucose Point of Care 112 mg/dl (65-105)
[2021-03-27 08:00] VITALS: PULSE 56; RESP 18; O2SAT 99
[2021-03-27 08:22] LABS: Glucose Point of Care 70 mg/dl (65-105)
[2021-03-27] MEDS: HEPARIN SODIUM 5,000 UNITS/ML VIAL 5000 UNITS SUB-Q (09:24)
[2021-03-27] MEDS: PREGABALIN (*CRX) 50 MG CAPSULE 100 MG PO (09:24)
[2021-03-27 09:25] VITALS: PULSE 56
[2021-03-27] MEDS: allopurinoL 100 MG TABLET PO (09:25)
[2021-03-27] MEDS: SERTRALINE HCL 50 MG TABLET PO (09:25)
[2021-03-27] MEDS: METOPROLOL TARTRATE 50 MG TAB PO ×2 (09:25→21:36)
[2021-03-27 09:34] LABS: Glucose Point of Care 80 mg/dl (65-105)
[2021-03-27 12:09] LABS: Glucose Point of Care 120 mg/dl (65-105)
--- NOTE | 2021-03-27 13:43 | PM.IMPN ---
Progress Note: A&P Assessment and Plan (1) Chronic kidney disease, stage 3: Code(s): N18.30 - Chronic kidney disease, stage 3 unspecified Status: Acute (2) Smoking: Code(s): F17.200 - Nicotine dependence, unspecified, uncomplicated Status: Acute (3) Hypertension: Code(s): I10 - Essential (primary) hypertension Status: Acute (4) Obesity: Code(s): E66.9 - Obesity, unspecified Status: Acute (5) Type 2 diabetes mellitus: Code(s): E11.9 - Type 2 diabetes mellitus without complications Status: Acute (6) CHF (congestive heart failure): Code(s): I50.9 - Heart failure, unspecified Status: Acute (7) Anemia: Code(s): D64.9 - Anemia, unspecified Status: Acute (8) Urinary tract infection: Code(s): N39.0 - Urinary tract infection, site not specified Status: Acute (9) Acute dehydration: Code(s): E86.0 - Dehydration Status: Acute (10) Acute kidney injury: Code(s): N17.9 - Acute kidney failure, unspecified Status: Acute (11) Thrombocytopenia: Code(s): D69.6 - Thrombocytopenia, unspecified Status: Acute Additional Plan # urinary tract infection Rocephin fail outpatient treatment at received nitrofurantoin and Levaquin course as an outpatient basis follow cultures here # frequent falls PT OT # generalized weakness PT OT # dehydration IV fluid # BETTY and CKD stage 3 baseline creatinine around 1.4 best recently seen currently at 2.1 hold losartan # recent diagnosis of COVID pneumonia treated at [facility] # congestive heart failure well compensated currently # chronic anemia no active sign of bleeding monitor counts # hypertension hold losartan but resume metoprolol # type 2 diabetes mellitus # peripheral neuropathy # Grout # coronary artery disease # thrombocytopenia # DVT prophylaxis heparin subQ # full code status 03/26/21: pending call to Dr Knutson to review outpt culture results [phone] ext [phone], deferred to hospitalist x tomorrow UTI w pyuria but no growth on outpt culture (sterile pyuria??) will cont to treat pending our inpt culture results cont home meds ISS rocephin for now 03/27/21: I spoke to Dr. Bose today on telephone. It seemed that the culture sent from 03/24 has been negative. The culture sent prior to that was positive for Enterococcus. She was treated with p.o. Augmentin prescribed on 03/24 before coming into the hospital here. He also told me that she does seem to have history of cirrhosis. I will check ammonia level in the a.m.. She pulled out her IV yesterday which will be reestablished today. I will continue to give her IV fluids. Her serum creatinine seems to be ranging between 1.4-2.0. I will continue ceftriaxone for today and then stop it tomorrow. The urine culture and blood culture from here has been negative so far. Her mental status has improved and she is awake and alert and denied have any confusion. PT OT has been consulted. Platelet count was noticed to be 81,000 today. I will stop heparin. I will recheck CBC in the a.m.. Likely discharge in a.m. if she is doing well otherwise. Subjective Date/time seen: 03/27/21 13:43 She was awake and alert. She was not confused. She had taken out 2 IVs last night. She was explained the importance of having IV access so that she can receive IV fluids. She denied have any chest pain shortness of breath cough fever and chills. She did mention to have some dysuria which is ongoing. Review of Systems Review of Systems: All systems reviewed & are unremarkable except as noted in HPI and below Exam Narrative: GEN: NAD, AAOx3, cooperative HEENT: NCAT, MMM, EOMI Neck: no JVD Heart: S1S2 RRR Lungs: CTA B/l Abd: soft, NT Ext: No edema Neuro: Alert oriented x3 Psych: Mood and affect congruent Objective Data Vital Signs Vital Signs: Vital Signs - 24 hr 03/26/21 14:00 03/26/21 2
[2021-03-27] MEDS: SODIUM CHLORIDE 0.9% IV 1,000 ML 100 ML IV CONT (13:48)
[2021-03-27 14:00] VITALS: BP 136/74; PULSE 66; RESP 16; TEMP 36.6; O2SAT 94
[2021-03-27 17:31] LABS: Glucose Point of Care 117 mg/dl (65-105)
[2021-03-27 21:36] VITALS: PULSE 74
[2021-03-27] MEDS: PREGABALIN (*CRX) 50 MG CAPSULE PO (21:36)
[2021-03-27] MEDS: traZODone HCL 50 MG TABLET PO (21:36)
[2021-03-27 22:00] VITALS: BP 150/53; PULSE 60; RESP 18; TEMP 36.3; O2SAT 99
[2021-03-27 22:19] LABS: Glucose Point of Care 153 mg/dl (65-105)
[2021-03-28] MEDS: SODIUM CHLORIDE 0.9% IV 1,000 ML 100 ML IV CONT ×3 (01:53→20:09)
[2021-03-28 06:00] VITALS: BP 172/78; PULSE 73; RESP 18; TEMP 36.4; O2SAT 96
[2021-03-28 06:28] LABS: Ammonia < 9 umol/L (9-30); Anion Gap 6 mmol/L (8-16); Blood Urea Nitrogen 22 mg/dL (7-17); Calcium 8.4 mg/dL (8.4-10.2); Carbon Dioxide 23 mmol/L (22-30); Chloride 113 mmol/L (98-107); Estimated CRCL calculation 20 ml/min; Estimated Glomerular Filt Rate 26; Glucose 74 mg/dL (65-110); Potassium 4.4 mmol/L (3.4-5.0); Sodium 142 mmol/L (137-145)
[2021-03-28 06:29] LABS: Basophils Percent Auto 0.5 % (0.2-1.2); Eosinophils Absolute Auto 0.2 K/mm3 (0-0.3); Eosinophils Percent Auto 3.4 % (0-4.4); Hematocrit 25.6 % (37.0-47.0); Hemoglobin 8.3 g/dL (12.0-15.0); Immature Granulocyte Absolute 0.01 K/mm3 (0.00-0.031); Immature Granulocyte Percent A 0.2 % (0-0.5); Lymphocytes Percent Auto 38.5 % (18.3-44.2); Mean Corpuscular HGB Conc 32.4 g/dl (32-36); Mean Corpuscular Hemoglobin 31.1 pg (26-34); Mean Corpuscular Volume 95.9 fl (80-100); Mean Platelet Volume 12.2 fl (7.4-10.4); Monocytes Absolute Auto 0.4 K/mm3 (0.1-0.6); Monocytes Percent Auto 8.4 % (2.6-8.5); Neutrophils Absolute Auto 2.2 K/mm3 (1.3-6.7); Platelet Count Result 95 k/mm3 (150-375); Red Blood Count 2.67 M/mm3 (4.2-5.4); Red Cell Distribution Width 15.2 % (11.5-14.5); White Blood Count 4.4 K/mm3 (4.5-10.0)
[2021-03-28 08:29] LABS: Glucose Point of Care 70 mg/dl (65-105)
[2021-03-28 09:15] VITALS: PULSE 66
[2021-03-28] MEDS: METOPROLOL TARTRATE 50 MG TAB PO ×2 (09:15→20:03)
[2021-03-28] MEDS: PREGABALIN (*CRX) 50 MG CAPSULE 100 MG PO (09:23)
[2021-03-28] MEDS: allopurinoL 100 MG TABLET PO (09:54)
[2021-03-28] MEDS: SERTRALINE HCL 50 MG TABLET PO (09:54)
[2021-03-28 12:04] LABS: Glucose Point of Care 83 mg/dl (65-105)
--- NOTE | 2021-03-28 13:16 | PM.IMPN ---
Progress Note: A&P Assessment and Plan (1) Chronic kidney disease, stage 3: Code(s): N18.30 - Chronic kidney disease, stage 3 unspecified Status: Acute (2) Smoking: Code(s): F17.200 - Nicotine dependence, unspecified, uncomplicated Status: Acute (3) Hypertension: Code(s): I10 - Essential (primary) hypertension Status: Acute (4) Obesity: Code(s): E66.9 - Obesity, unspecified Status: Acute (5) Type 2 diabetes mellitus: Code(s): E11.9 - Type 2 diabetes mellitus without complications Status: Acute (6) CHF (congestive heart failure): Code(s): I50.9 - Heart failure, unspecified Status: Acute (7) Anemia: Code(s): D64.9 - Anemia, unspecified Status: Acute (8) Urinary tract infection: Code(s): N39.0 - Urinary tract infection, site not specified Status: Acute (9) Acute dehydration: Code(s): E86.0 - Dehydration Status: Acute (10) Acute kidney injury: Code(s): N17.9 - Acute kidney failure, unspecified Status: Acute (11) Thrombocytopenia: Code(s): D69.6 - Thrombocytopenia, unspecified Status: Acute Additional Plan 03/25/21: # urinary tract infection Rocephin fail outpatient treatment at received nitrofurantoin and Levaquin course as an outpatient basis follow cultures here # frequent falls PT OT # generalized weakness PT OT # dehydration IV fluid # BETTY and CKD stage 3 baseline creatinine around 1.4 best recently seen currently at 2.1 hold losartan # recent diagnosis of COVID pneumonia treated at [facility] # congestive heart failure well compensated currently # chronic anemia no active sign of bleeding monitor counts # hypertension hold losartan but resume metoprolol # type 2 diabetes mellitus # peripheral neuropathy # Grout # coronary artery disease # thrombocytopenia # DVT prophylaxis heparin subQ # full code status 03/26/21: pending call to Dr Knutson to review outpt culture results [phone] ext [phone], deferred to hospitalist x tomorrow UTI w pyuria but no growth on outpt culture (sterile pyuria??) will cont to treat pending our inpt culture results cont home meds ISS rocephin for now 03/27/21: I spoke to Dr. Bose today on telephone. It seemed that the culture sent from 03/24 has been negative. The culture sent prior to that was positive for Enterococcus. She was treated with p.o. Augmentin prescribed on 03/24 before coming into the hospital here. He also told me that she does seem to have history of cirrhosis. I will check ammonia level in the a.m.. She pulled out her IV yesterday which will be reestablished today. I will continue to give her IV fluids. Her serum creatinine seems to be ranging between 1.4-2.0. I will continue ceftriaxone for today and then stop it tomorrow. The urine culture and blood culture from here has been negative so far. Her mental status has improved and she is awake and alert and denied have any confusion. PT OT has been consulted. Platelet count was noticed to be 81,000 today. I will stop heparin. I will recheck CBC in the a.m.. Likely discharge in a.m. if she is doing well otherwise. 03/28/21: There is some improvement in creatinine with creatinine improving to 1.9 today from 2.1 yesterday. Her creatinine seems to be having high variability but mostly ranging from 1.4-1.9 range. Continue IV fluid today and recheck her BMP in the a.m.. Continue to monitor strict intake output record and daily weight. Will stop antibiotics today. She has received ceftriaxone here for 3 days and received 2 days of p.o. Augmentin as an outpatient as well. She is no longer complaining of any urinary symptoms. Her urine culture as well as blood cultures remain negative here in the hospital. Ammonia was checked considering her history of liver cirrhosis which was within normal range. Not have any [place] [address] [place] which is better than 81,0
[2021-03-28 16:09] VITALS: BP 147/71; PULSE 59; RESP 16; TEMP 36.7; O2SAT 96
[2021-03-28 16:59] LABS: Glucose Point of Care 92 mg/dl (65-105)
[2021-03-28 20:03] VITALS: PULSE 78
[2021-03-28] MEDS: traZODone HCL 50 MG TABLET PO (20:03)
[2021-03-28] MEDS: PREGABALIN (*CRX) 50 MG CAPSULE PO (20:03)
[2021-03-28 21:14] LABS: Glucose Point of Care 78 mg/dl (65-105)
[2021-03-28 21:35] VITALS: BP 154/62; PULSE 62; RESP 18; TEMP 36.9; O2SAT 98
[2021-03-29] MEDS: SODIUM CHLORIDE 0.9% IV 1,000 ML 100 ML IV CONT ×2 (05:26→15:49)
[2021-03-29 06:00] VITALS: BP 140/69; PULSE 66; RESP 16; TEMP 36.7; O2SAT 96
[2021-03-29 06:35] LABS: Hematocrit 26.4 % (37.0-47.0); Hemoglobin 7.9 g/dL (12.0-15.0); Mean Corpuscular HGB Conc 29.9 g/dl (32-36); Mean Corpuscular Hemoglobin 31.6 pg (26-34); Mean Corpuscular Volume 105.6 fl (80-100); Mean Platelet Volume 11.6 fl (7.4-10.4); Platelet Count Result 82 k/mm3 (150-375); Red Cell Distribution Width 15.9 % (11.5-14.5); White Blood Count 4.1 K/mm3 (4.5-10.0)
[2021-03-29 06:45] LABS: Anion Gap 7 mmol/L (8-16); Blood Urea Nitrogen 24 mg/dL (7-17); Calcium 8.1 mg/dL (8.4-10.2); Carbon Dioxide 20 mmol/L (22-30); Chloride 115 mmol/L (98-107); Estimated CRCL calculation 21 ml/min; Estimated Glomerular Filt Rate 27; Glucose 75 mg/dL (65-110); Potassium 4.2 mmol/L (3.4-5.0); Sodium 142 mmol/L (137-145)
[2021-03-29 08:08] VITALS: PULSE 60
[2021-03-29] MEDS: METOPROLOL TARTRATE 50 MG TAB PO ×2 (08:08→20:08)
[2021-03-29] MEDS: SERTRALINE HCL 50 MG TABLET PO (08:08)
[2021-03-29] MEDS: PREGABALIN (*CRX) 50 MG CAPSULE 100 MG PO (08:08)
[2021-03-29] MEDS: allopurinoL 100 MG TABLET PO (08:08)
[2021-03-29 08:12] LABS: Glucose Point of Care 65 mg/dl (65-105)
--- NOTE | 2021-03-29 10:08 | PM.IMPN ---
Progress Note: A&P Assessment and Plan (1) Chronic kidney disease, stage 3: Code(s): N18.30 - Chronic kidney disease, stage 3 unspecified Status: Acute Assessment and Plan: Continue to monitor BUN and creatinine (2) Smoking: Code(s): F17.200 - Nicotine dependence, unspecified, uncomplicated Status: Acute Assessment and Plan: Nicotine patch as needed (3) Hypertension: Code(s): I10 - Essential (primary) hypertension Status: Acute Assessment and Plan: Continue home meds Continue to monitor (4) Type 2 diabetes mellitus: Code(s): E11.9 - Type 2 diabetes mellitus without complications Status: Acute Assessment and Plan: Continue to monitor Insulin sliding scale as needed (5) CHF (congestive heart failure): Code(s): I50.9 - Heart failure, unspecified Status: Acute Assessment and Plan: Appears to be euvolemic Continue to monitor (6) Anemia: Code(s): D64.9 - Anemia, unspecified Status: Acute Assessment and Plan: Continue to monitor (7) Urinary tract infection: Code(s): N39.0 - Urinary tract infection, site not specified Status: Acute Assessment and Plan: Continue Rocephin Supportive care (8) Acute dehydration: Code(s): E86.0 - Dehydration Status: Acute Assessment and Plan: Patient with good p.o. intake Continue to monitor (9) Acute kidney injury: Code(s): N17.9 - Acute kidney failure, unspecified Status: Acute Assessment and Plan: Resolved Continue to monitor (10) Thrombocytopenia: Code(s): D69.6 - Thrombocytopenia, unspecified Status: Acute Assessment and Plan: 03/25/21 # urinary tract infection Rocephin fail outpatient treatment at received nitrofurantoin and Levaquin course as an outpatient basis follow cultures here # frequent falls PT OT # generalized weakness PT OT # dehydration IV fluid # BETTY and CKD stage 3 baseline creatinine around 1.4 best recently seen currently at 2.1 hold losartan # recent diagnosis of COVID pneumonia treated at [facility] # congestive heart failure well compensated currently # chronic anemia no active sign of bleeding monitor counts # hypertension hold losartan but resume metoprolol # type 2 diabetes mellitus # peripheral neuropathy # Grout # coronary artery disease # thrombocytopenia # DVT prophylaxis heparin subQ # full code status 03/26/[address] Knutson to review outpt culture results [phone] ext [phone], deferred to hospitalist x tomorrow UTI w pyuria but no growth on outpt culture (sterile pyuria??) will cont to treat pending our inpt culture results cont home meds ISS rocephin for now Additional Plan 03/25/21: # urinary tract infection Rocephin fail outpatient treatment at received nitrofurantoin and Levaquin course as an outpatient basis follow cultures here # frequent falls PT OT # generalized weakness PT OT # dehydration IV fluid # BETTY and CKD stage 3 baseline creatinine around 1.4 best recently seen currently at 2.1 hold losartan # recent diagnosis of COVID pneumonia treated at [facility] # congestive heart failure well compensated currently # chronic anemia no active sign of bleeding monitor counts # hypertension hold losartan but resume metoprolol # type 2 diabetes mellitus # peripheral neuropathy # Grout # coronary artery disease # thrombocytopenia # DVT prophylaxis heparin subQ # full code status 03/26/21: pending call to Dr Knutson to review outpt culture results [phone] ext [phone], deferred to hospitalist x tomorrow UTI w pyuria but no growth on outpt culture (sterile pyuria??) will cont to treat pending our inpt culture results cont home meds ISS rocephin for now 03/27/21: I spoke to Dr. Bose today on telephone. It seemed that the culture sent from 03/24 has been negative. The culture sent prior to that was positive for Enter
[2021-03-29 10:53] LABS: Glucose Point of Care 82 mg/dl (65-105)
[2021-03-29 12:00] LABS: Glucose Point of Care 90 mg/dl (65-105)
[2021-03-29 14:00] VITALS: BP 147/53; PULSE 57; RESP 18; TEMP 36.3; O2SAT 97
[2021-03-29 16:48] LABS: Glucose Point of Care 81 mg/dl (65-105)
[2021-03-29 20:08] VITALS: PULSE 60
[2021-03-29] MEDS: traZODone HCL 50 MG TABLET PO (20:08)
[2021-03-29] MEDS: PREGABALIN (*CRX) 50 MG CAPSULE PO (20:08)
[2021-03-29 20:57] LABS: Glucose Point of Care 130 mg/dl (65-105)
[2021-03-29 21:40] VITALS: O2SAT 96
[2021-03-29 22:00] VITALS: BP 153/71; PULSE 67; RESP 18; TEMP 36.6; O2SAT 98
[2021-03-30] MEDS: SODIUM CHLORIDE 0.9% IV 1,000 ML 100 ML IV CONT (03:11)
[2021-03-30 06:00] VITALS: BP 154/51; PULSE 75; RESP 18; TEMP 36.5; O2SAT 93
[2021-03-30 07:52] LABS: Glucose Point of Care 68 mg/dl (65-105)
[2021-03-30] MEDS: allopurinoL 100 MG TABLET PO (08:23)
[2021-03-30] MEDS: PREGABALIN (*CRX) 50 MG CAPSULE 100 MG PO (08:23)
[2021-03-30] MEDS: SERTRALINE HCL 50 MG TABLET PO (08:23)
[2021-03-30 08:24] VITALS: PULSE 80
[2021-03-30] MEDS: METOPROLOL TARTRATE 50 MG TAB PO (08:24)
[2021-03-30 09:53] LABS: Hematocrit 25.1 % (37.0-47.0); Mean Corpuscular HGB Conc 31.9 g/dl (32-36); Mean Corpuscular Hemoglobin 31.4 pg (26-34); Mean Corpuscular Volume 98.4 fl (80-100); Mean Platelet Volume 12.2 fl (7.4-10.4); Red Blood Count 2.55 M/mm3 (4.2-5.4); White Blood Count 5.9 K/mm3 (4.5-10.0)
[2021-03-30 09:58] LABS: Platelet Count Result 89 k/mm3 (150-375)
[2021-03-30 10:06] LABS: Glucose Point of Care 108 mg/dl (65-105)
[2021-03-30 10:12] LABS: Anion Gap 6 mmol/L (8-16); Blood Urea Nitrogen 23 mg/dL (7-17); Calcium 8.2 mg/dL (8.4-10.2); Carbon Dioxide 19 mmol/L (22-30); Chloride 118 mmol/L (98-107); Estimated CRCL calculation 25 ml/min; Estimated Glomerular Filt Rate 34; Glucose 98 mg/dL (65-110); Potassium 4.4 mmol/L (3.4-5.0); Sodium 143 mmol/L (137-145)
[2021-03-30 11:54] LABS: Glucose Point of Care 144 mg/dl (65-105)
[2021-03-30 14:00] VITALS: BP 136/86; PULSE 56; RESP 20; TEMP 36.6; O2SAT 100
[2021-03-30 16:44] LABS: Glucose Point of Care 117 mg/dl (65-105)
[2021-03-30 21:13] VITALS: PULSE 48
[2021-03-30] MEDS: traZODone HCL 50 MG TABLET PO (21:13)
[2021-03-30] MEDS: PREGABALIN (*CRX) 50 MG CAPSULE PO (21:13)
[2021-03-30 21:18] VITALS: O2SAT 95
[2021-03-30 22:00] VITALS: BP 176/66; PULSE 57; RESP 18; TEMP 36.5; O2SAT 96
[2021-03-30 22:28] LABS: Glucose Point of Care 107 mg/dl (65-105)
[2021-03-31 06:00] VITALS: BP 175/68; PULSE 65; RESP 18; TEMP 36.5; O2SAT 94
[2021-03-31 08:24] LABS: Glucose Point of Care 85 mg/dl (65-105)
[2021-03-31 09:25] VITALS: PULSE 60
[2021-03-31] MEDS: SERTRALINE HCL 50 MG TABLET PO (09:25)
[2021-03-31] MEDS: METOPROLOL TARTRATE 50 MG TAB PO ×2 (09:25→20:09)
[2021-03-31] MEDS: allopurinoL 100 MG TABLET PO (09:25)
[2021-03-31] MEDS: PREGABALIN (*CRX) 50 MG CAPSULE 100 MG PO (09:28)
[2021-03-31 12:45] LABS: Glucose Point of Care 108 mg/dl (65-105)
[2021-03-31 13:15] VITALS: BMI 20.5
[2021-03-31 14:00] VITALS: BP 116/75; PULSE 105; RESP 16; TEMP 36.6; O2SAT 98
[2021-03-31 16:54] LABS: Glucose Point of Care 170 mg/dl (65-105)
[2021-03-31 20:09] VITALS: PULSE 68
[2021-03-31] MEDS: PREGABALIN (*CRX) 50 MG CAPSULE PO (20:09)
[2021-03-31] MEDS: traZODone HCL 50 MG TABLET PO (20:09)
[2021-03-31 20:48] VITALS: PULSE 84; RESP 18; O2SAT 98
[2021-03-31 21:03] VITALS: BP 136/49; PULSE 56; RESP 16; TEMP 36.6; O2SAT 99
[2021-04-01 00:32] LABS: Glucose Point of Care 125 mg/dl (65-105)
[2021-04-01 04:18] VITALS: BP 141/48; PULSE 66; RESP 17; TEMP 35.7; O2SAT 98
[2021-04-01 07:54] LABS: Glucose Point of Care 82 mg/dl (65-105)
[2021-04-01 08:00] VITALS: BP 153/66; PULSE 61; RESP 18; TEMP 36.1; O2SAT 95
[2021-04-01] MEDS: allopurinoL 100 MG TABLET PO (08:56)
[2021-04-01 08:58] VITALS: PULSE 61
[2021-04-01] MEDS: METOPROLOL TARTRATE 50 MG TAB PO ×2 (08:58→21:00)
[2021-04-01] MEDS: SERTRALINE HCL 50 MG TABLET PO (08:59)
[2021-04-01] MEDS: PREGABALIN (*CRX) 50 MG CAPSULE 100 MG PO (08:59)
--- NOTE | 2021-04-01 10:43 | PM.IMPN ---
Progress Note: A&P Assessment and Plan (1) Chronic kidney disease, stage 3: Code(s): N18.30 - Chronic kidney disease, stage 3 unspecified Status: Acute Assessment and Plan: Continue to monitor BUN and creatinine (2) Smoking: Code(s): F17.200 - Nicotine dependence, unspecified, uncomplicated Status: Acute Assessment and Plan: Nicotine patch as needed (3) Hypertension: Code(s): I10 - Essential (primary) hypertension Status: Acute Assessment and Plan: Continue home meds Continue to monitor (4) Type 2 diabetes mellitus: Code(s): E11.9 - Type 2 diabetes mellitus without complications Status: Acute Assessment and Plan: Continue to monitor Insulin sliding scale as needed (5) CHF (congestive heart failure): Code(s): I50.9 - Heart failure, unspecified Status: Acute Assessment and Plan: Appears to be euvolemic Continue to monitor (6) Anemia: Code(s): D64.9 - Anemia, unspecified Status: Acute Assessment and Plan: Continue to monitor (7) Urinary tract infection: Code(s): N39.0 - Urinary tract infection, site not specified Status: Acute Assessment and Plan: Continue Rocephin Supportive care (8) Acute dehydration: Code(s): E86.0 - Dehydration Status: Acute Assessment and Plan: Patient with good p.o. intake Continue to monitor (9) Acute kidney injury: Code(s): N17.9 - Acute kidney failure, unspecified Status: Acute Assessment and Plan: Resolved Continue to monitor (10) Thrombocytopenia: Code(s): D69.6 - Thrombocytopenia, unspecified Status: Acute Additional Plan 75yo lady with DM2 CKD3 CHF presenting with combative behavior and falls at home. Encephalopathy & Falls: Head CT showing prior infarction & no acute intracranial abnormality. Found to have UTI. Urine culture pending, currently on bactrim. Hold off on further encephalopathy w/up as of now as she has returned to baseline. Disposition: Pt is open to discharge to another facility, incl SNF. Will encourage discussion with care coordination. Subjective Date/time seen: 04/01/21 10:43 no acute complaints resting comfortably Review of Systems Review of Systems: All systems reviewed & are unremarkable except as noted in HPI and below Exam Const: General: no acute distress Neck: Neck: no JVD Resp: Effort & Inspection: normal respiratory effort Auscultation: clear to auscultation bilaterally Cardio: Rate: regular rate Rhythm: regular rhythm GI: Inspection: non-distended Objective Data Vital Signs Vital Signs: Vital Signs - 24 hr 03/31/21 14:00 03/31/21 20:09 03/31/21 20:48 Temperature 97.8 F Pulse Rate 105 H 68 84 Respiratory Rate 16 18 Blood Pressure 116/75 Pulse Oximetry 98 98 03/31/21 21:03 04/01/21 04:18 04/01/21 08:58 Temperature 97.8 F 96.2 F L Pulse Rate 56 L 66 61 Respiratory Rate 16 17 Blood Pressure 136/49 L 141/48 H Pulse Oximetry 99 98 Intake/Output Intake/Output: Intake & Output 03/29/21 03/30/21 03/31/21 04/01/21 23:59 23:59 23:59 23:59 Intake Total 2820 3027 1370 200 Balance 2820 3027 1370 200 Meds/Results Medications: Active Medications Generic Name Dose Route Start Last Admin Trade Name Freq PRN Reason Stop Dose Admin Allopurinol 100 mg 03/26/21 08:00 04/01/21 08:56 Allopurinol 100 Mg Tablet PO 100 mg DAILY@0800 CONSTANCE Administration Dextrose 12.5 gm 03/26/21 20:26 Dextrose 50% 25 Gm/50 Ml Syringe IV PUSH PRN PRN Hypoglycemia Protocol Glucagon 1 mg 03/26/21 20:26 Glucagon For Inj 1 Mg Vial IM PRN PRN Hypoglycemia Protocol Glucose 15 gm 03/26/21 20:26 Glucose Oral Gel 15 Gm Of Glucse In 37.5 Gm Tube PO PRN PRN Hypoglycemia Protocol Dextrose 1,000 mls @ 100 mls/hr 03/26/21 20:26 Dextrose 5% 1,000 Ml IVPB PRN PRN H
[2021-04-01 12:20] LABS: Glucose Point of Care 158 mg/dl (65-105)
[2021-04-01 14:00] VITALS: BP 149/85; PULSE 66; RESP 16; TEMP 36.1; O2SAT 99
--- NOTE | 2021-04-01 14:50 | PC.NURSE ---
On 04/01/21, the student, [ Shira Benavides], provided care and completed [facility] documentation on this patient. I have reviewed the student's documentation and agree with the findings.
[2021-04-01 16:19] LABS: Glucose Point of Care 137 mg/dl (65-105)
--- NOTE | 2021-04-01 18:57 | PM.IMPN ---
Progress Note: A&P Assessment and Plan (1) Urinary tract infection: Code(s): N39.0 - Urinary tract infection, site not specified Status: Acute Assessment and Plan: Continue Rocephin Await cultures identification sensitivity Supportive care (2) Chronic kidney disease, stage 3: Code(s): N18.30 - Chronic kidney disease, stage 3 unspecified Status: Acute Assessment and Plan: Continue to monitor BUN and creatinine (3) Smoking: Code(s): F17.200 - Nicotine dependence, unspecified, uncomplicated Status: Acute Assessment and Plan: Nicotine patch as needed (4) Hypertension: Code(s): I10 - Essential (primary) hypertension Status: Acute Assessment and Plan: Continue home meds Continue to monitor (5) Type 2 diabetes mellitus: Code(s): E11.9 - Type 2 diabetes mellitus without complications Status: Acute Assessment and Plan: Continue to monitor Insulin sliding scale as needed (6) CHF (congestive heart failure): Code(s): I50.9 - Heart failure, unspecified Status: Acute Assessment and Plan: Appears to be euvolemic Continue to monitor (7) Anemia: Code(s): D64.9 - Anemia, unspecified Status: Acute Assessment and Plan: Continue to monitor (8) Acute dehydration: Code(s): E86.0 - Dehydration Status: Acute Assessment and Plan: Patient with good p.o. intake Continue to monitor (9) Acute kidney injury: Code(s): N17.9 - Acute kidney failure, unspecified Status: Acute Assessment and Plan: Resolved Continue to monitor Subjective Date/time seen: 03/30/21 09:30 Patient seen and examined on above date late entry note I feel fine Review of Systems Review of Systems: Weak poor appetite Constitutional: Constitutional: Denies chills, Denies fatigue, Denies fever(s) and Reports lethargy Eyes: Eyes: Denies change in vision ENT: Denies dysphagia, Denies dizziness, Denies nasal congestion, Denies nasal discharge, Denies nasal obstruction and Denies odynophagia Cardiovascular: Cardiovascular: Denies chest pain at rest, Denies pedal edema, Denies irregular heart rhythm, Denies leg edema, Denies radiating jaw, neck or arm pain, Denies palpitations, Denies dyspnea, Denies dyspnea on exertion and Denies orthopnea Respiratory: Respiratory: Denies cough, Denies excessive phlegm production and Denies dyspnea Gastrointestinal: Gastrointestinal: Denies dyspepsia, Denies heartburn, Denies nausea and Denies vomiting Genitourinary: Genitourinary: Denies dysuria, Denies urinary incontinence, Denies urinary hesitancy and Denies urinary urgency Musculoskeletal: Musculoskeletal: Denies arthralgias and Denies joint swelling Integumentary/Breasts: Skin/Breast: Denies rash Neurologic: Denies focal weakness and Denies Sensory deficit (Neuro) Psychiatric: Psychiatric: Denies anxiety, Denies depression, Denies difficulty concentrating and Denies irritability Endocrine: Endocrine: Denies cold intolerance, Denies excessive sweating and Denies palpitations Hematologic/Lymphatic: Hematologic/Lymphatic: Reports no additional hematologic/lymphatic complaints Allergic/Immunologic: Allergic/Immunologic: Reports no additional allergic/immunologic complaints Exam Narrative: Patient is in bed. Const: General: cooperative, comfortable, no acute distress, well developed, alert, awake and tired appearing Nutritional Appearance: thin Orientation/consciousness: patient oriented x3 HENMT: Head: normal to inspection, normocephalic and atraumatic Ears: hearing grossly normal bilaterally General nose exam: Normal external nose present Face and sinus: normal facial exam Mouth: Yes Normal oral and palatal mucosa present Eyes: General: appearance normal, both eyes and all related structures Alignment and Position: alignment normal Sclera: sclerae normal Pupils: Equal, round and reactive p
--- NOTE | 2021-04-01 19:18 | PM.IMPN ---
Progress Note: A&P Assessment and Plan (1) Urinary tract infection: Code(s): N39.0 - Urinary tract infection, site not specified Status: Acute Assessment and Plan: Continue Rocephin Await cultures identification sensitivity Supportive care (2) Chronic kidney disease, stage 3: Code(s): N18.30 - Chronic kidney disease, stage 3 unspecified Status: Acute Assessment and Plan: Continue to monitor BUN and creatinine (3) Smoking: Code(s): F17.200 - Nicotine dependence, unspecified, uncomplicated Status: Acute Assessment and Plan: Nicotine patch as needed (4) Hypertension: Code(s): I10 - Essential (primary) hypertension Status: Acute Assessment and Plan: Continue home meds Continue to monitor (5) Type 2 diabetes mellitus: Code(s): E11.9 - Type 2 diabetes mellitus without complications Status: Acute Assessment and Plan: Continue to monitor Insulin sliding scale as needed (6) CHF (congestive heart failure): Code(s): I50.9 - Heart failure, unspecified Status: Acute Assessment and Plan: Appears to be euvolemic Continue to monitor (7) Anemia: Code(s): D64.9 - Anemia, unspecified Status: Acute Assessment and Plan: Continue to monitor (8) Acute dehydration: Code(s): E86.0 - Dehydration Status: Acute Assessment and Plan: Patient with good p.o. intake however only eating 50% started supplement with meals. Continue to monitor (9) Acute kidney injury: Code(s): N17.9 - Acute kidney failure, unspecified Status: Acute Assessment and Plan: Resolved Continue to monitor Subjective Date/time seen: 03/31/21 1300 Patient seen and examined on above date late entry note I feel fine Review of Systems Constitutional: Constitutional: Denies chills, Denies fever(s), Reports lethargy, Denies malaise, Reports poor appetite and Reports weakness Eyes: Eyes: Denies change in vision ENT: Denies dysphagia, Denies vertigo, Denies dizziness, Denies nasal congestion, Denies nasal discharge, Denies nasal obstruction and Denies odynophagia Cardiovascular: Cardiovascular: Denies irregular heart rhythm, Denies radiating jaw, neck or arm pain, Denies palpitations, Denies dyspnea, Denies dyspnea on exertion and Denies orthopnea Respiratory: Respiratory: Denies chest congestion, Denies cough and Denies dyspnea Gastrointestinal: Gastrointestinal: Denies abdominal pain, Denies dyspepsia, Denies heartburn, Denies diarrhea, Denies nausea and Denies vomiting Genitourinary: Genitourinary: Denies dysuria and Denies flank pain Musculoskeletal: Musculoskeletal: Denies arthralgias and Denies joint swelling Integumentary/Breasts: Skin/Breast: Denies rash Neurologic: Denies syncope, Denies focal weakness and Denies Sensory deficit (Neuro) Psychiatric: Psychiatric: Denies confusion Endocrine: Endocrine: Denies heat intolerance, Denies increase in ring/shoe/hat size and Denies palpitations Hematologic/Lymphatic: Hematologic/Lymphatic: Reports no additional hematologic/lymphatic complaints Allergic/Immunologic: Allergic/Immunologic: Reports no additional allergic/immunologic complaints Exam Narrative: Patient working with physical therapy using the walker. Const: General: cooperative, comfortable, no acute distress, well developed, alert and awake Nutritional Appearance: thin Orientation/consciousness: patient oriented x3 HENMT: Head: normal to inspection, normocephalic and atraumatic Ears: hearing grossly normal bilaterally Face and sinus: normal facial exam Eyes: General: appearance normal, both eyes and all related structures Alignment and Position: alignment normal Sclera: sclerae normal Pupils: Equal, round and reactive pupils present EOM: EOMs intact bilaterally Neck: Neck: normal visual inspection, full ROM, no lymphadenopathy, supple and no JVD Thyroid: thyroid nor
[2021-04-01 21:00] VITALS: PULSE 76
[2021-04-01] MEDS: traZODone HCL 50 MG TABLET PO (21:00)
[2021-04-01] MEDS: PREGABALIN (*CRX) 50 MG CAPSULE PO (21:00)
[2021-04-01] MEDS: AMOXICILLIN/CLAVULANATE K 875-125 MG TAB 1 TABLET PO (21:00)
[2021-04-01 21:40] LABS: Glucose Point of Care 119 mg/dl (65-105)
[2021-04-01 22:00] VITALS: BP 150/65; PULSE 79; RESP 18; TEMP 36.7; O2SAT 99
[2021-04-02 05:43] VITALS: BP 161/76; PULSE 73; RESP 18; TEMP 36.8; O2SAT 100
[2021-04-02 06:05] LABS: Basophils Percent Auto 0.4 % (0.2-1.2); Eosinophils Absolute Auto 0.2 K/mm3 (0-0.3); Eosinophils Percent Auto 2.1 % (0-4.4); Hematocrit 24.9 % (37.0-47.0); Hemoglobin 7.9 g/dL (12.0-15.0); Immature Granulocyte Absolute 0.03 K/mm3 (0.00-0.031); Immature Granulocyte Percent A 0.4 % (0-0.5); Lymphocytes Absolute Auto 1.88 K/mm3 (0.9-3.2); Lymphocytes Percent Auto 24.6 % (18.3-44.2); Mean Corpuscular HGB Conc 31.7 g/dl (32-36); Mean Corpuscular Hemoglobin 30.6 pg (26-34); Mean Corpuscular Volume 96.5 fl (80-100); Monocytes Absolute Auto 0.6 K/mm3 (0.1-0.6); Monocytes Percent Auto 8.1 % (2.6-8.5); Neutrophils Absolute Auto 4.9 K/mm3 (1.3-6.7); Neutrophils Percent Auto 64.4 % (45.5-73.1); Platelet Count Result 106 k/mm3 (150-375); Red Blood Count 2.58 M/mm3 (4.2-5.4); Red Cell Distribution Width 15.7 % (11.5-14.5); White Blood Count 7.6 K/mm3 (4.5-10.0)
[2021-04-02 06:25] LABS: Alanine Aminotransferase 13 U/L (4-35); Alkaline Phosphatase 121 U/L (38-126); Anion Gap 8 mmol/L (8-16); Aspartate Amino Transferase 29 U/L (14-36); Bilirubin,Total 0.5 mg/dL (0.2-1.3); Blood Urea Nitrogen 24 mg/dL (7-17); Calcium 8.2 mg/dL (8.4-10.2); Carbon Dioxide 22 mmol/L (22-30); Chloride 110 mmol/L (98-107); Estimated CRCL calculation 23 ml/min; Estimated Glomerular Filt Rate 31; Glucose 92 mg/dL (65-110); Magnesium 1.5 mg/dL (1.6-2.3); Phosphorus 4.2 mg/dL (2.5-4.5); Sodium 140 mmol/L (137-145)
[2021-04-02 07:56] LABS: Glucose Point of Care 79 mg/dl (65-105)
[2021-04-02 08:29] VITALS: PULSE 64
[2021-04-02] MEDS: METOPROLOL TARTRATE 50 MG TAB PO (08:29)
[2021-04-02] MEDS: SERTRALINE HCL 50 MG TABLET PO (08:29)
[2021-04-02] MEDS: allopurinoL 100 MG TABLET PO (08:29)
[2021-04-02] MEDS: AMOXICILLIN/CLAVULANATE K 875-125 MG TAB 1 TABLET PO ×2 (08:29→21:37)
[2021-04-02] MEDS: PREGABALIN (*CRX) 50 MG CAPSULE 100 MG PO (08:31)
[2021-04-02 11:40] LABS: Glucose Point of Care 112 mg/dl (65-105)
--- NOTE | 2021-04-02 13:32 | PM.IMPN ---
Progress Note: A&P Assessment and Plan (1) Urinary tract infection: Code(s): N39.0 - Urinary tract infection, site not specified Status: Acute Assessment and Plan: Continue Rocephin Await cultures identification sensitivity Supportive care (2) Chronic kidney disease, stage 3: Code(s): N18.30 - Chronic kidney disease, stage 3 unspecified Status: Acute Assessment and Plan: Continue to monitor BUN and creatinine (3) Smoking: Code(s): F17.200 - Nicotine dependence, unspecified, uncomplicated Status: Acute Assessment and Plan: Nicotine patch as needed (4) Hypertension: Code(s): I10 - Essential (primary) hypertension Status: Acute Assessment and Plan: Continue home meds Continue to monitor (5) Type 2 diabetes mellitus: Code(s): E11.9 - Type 2 diabetes mellitus without complications Status: Acute Assessment and Plan: Continue to monitor Insulin sliding scale as needed (6) CHF (congestive heart failure): Code(s): I50.9 - Heart failure, unspecified Status: Acute Assessment and Plan: Appears to be euvolemic Continue to monitor (7) Anemia: Code(s): D64.9 - Anemia, unspecified Status: Acute Assessment and Plan: Continue to monitor (8) Acute dehydration: Code(s): E86.0 - Dehydration Status: Acute Assessment and Plan: Patient with good p.o. intake however only eating 50% started supplement with meals. Continue to monitor (9) Acute kidney injury: Code(s): N17.9 - Acute kidney failure, unspecified Status: Acute Assessment and Plan: Resolved Continue to monitor Additional Plan 75yo lady with DM2 CKD3 CHF presenting with combative behavior and falls at home. Encephalopathy & Falls: Head CT showing prior infarction & no acute intracranial abnormality. Found to have UTI. Urine culture pending, currently on bactrim. Hold off on further encephalopathy w/up as of now as she has returned to baseline. Plan for discharge later today or early tomorrow. Time Spent With Patient Time with patient: less than 15 minutes Subjective Date/time seen: 04/02/21 13:32 no acute complaints. resting comfortably in bed Review of Systems Review of Systems: All systems reviewed & are unremarkable except as noted in HPI and below Exam Const: General: no acute distress Eyes: General: appearance normal, both eyes and all related structures Neck: Neck: no JVD Resp: Effort & Inspection: normal respiratory effort Auscultation: clear to auscultation bilaterally Cardio: Rate: regular rate Rhythm: regular rhythm GI: Inspection: non-distended Objective Data Vital Signs Vital Signs: Vital Signs - 24 hr 04/01/21 14:00 04/01/21 21:00 04/01/21 22:00 Temperature 97 F L 98.0 F Pulse Rate 66 76 79 Respiratory Rate 16 18 Blood Pressure 149/85 H 150/65 H Pulse Oximetry 99 99 04/02/21 05:43 04/02/21 08:29 Temperature 98.2 F Pulse Rate 73 64 Respiratory Rate 18 Blood Pressure 161/76 H Pulse Oximetry 100 Intake/Output Intake/Output: Intake & Output 03/30/21 03/31/21 04/01/21 04/02/21 23:59 23:59 23:59 23:59 Intake Total 3027 1370 920 240 Output Total 200 Balance 3027 1370 720 240 Meds/Results Medications: Active Medications Generic Name Dose Route Start Last Admin Trade Name Freq PRN Reason Stop Dose Admin Allopurinol 100 mg 03/26/21 08:00 04/02/21 08:29 Allopurinol 100 Mg Tablet PO 100 mg DAILY@0800 CONSTANCE Administration Amoxicillin/Clavulanate Potassium 1 tablet 04/01/21 21:00 04/02/21 08:29 Amoxicillin/Clavulanate K 875-125 Mg Tab PO 04/07/21 08:00 1 tablet Q12HR CONSTANCE Administration Dextrose 12.5 gm 03/26/21 20:26 Dextrose 50% 25 Gm/50 Ml Syringe IV PUSH PRN PRN Hypoglycemia Protocol Glucagon 1 mg 03/26/21 20:26 Glucagon For Inj 1 Mg Vial IM PRN PRN Hypoglycemia Pr
[2021-04-02 14:00] VITALS: BP 137/65; PULSE 58; RESP 18; TEMP 36; O2SAT 99
[2021-04-02] MEDS: SODIUM CHLORIDE 0.9% IV 1,000 ML 500 ML IV CONT (16:52)
[2021-04-02 18:17] LABS: Immature Reticulocyte Fraction 14.1 % (3.0-15.9); Reticulocyte Hemoglobin Conten 31.4 pg (28.2-35.7); Reticulocyte Percent 1.87 % (0.7-4.3); Reticulocytes Absolute 0.05 B/L (32.2-175.7)
[2021-04-02 18:30] LABS: Lactate Dehydrogenase 288 U/L (313-618)
[2021-04-02 18:50] LABS: Iron 27 ug/dL (37-170)
[2021-04-02 19:01] LABS: Percent Iron Saturation 14 % (20-50)
[2021-04-02] MEDS: SODIUM CHLORIDE 0.9% IV 1,000 ML 100 ML IV CONT (19:22)
[2021-04-02 19:42] LABS: Glucose Point of Care 121 mg/dl (65-105)
[2021-04-02 20:33] LABS: Transferrin 112 mg/dL (206-381)
[2021-04-02 21:29] VITALS: O2SAT 99
[2021-04-02] MEDS: PREGABALIN (*CRX) 50 MG CAPSULE PO (21:37)
[2021-04-02] MEDS: traZODone HCL 50 MG TABLET PO (21:37)
[2021-04-02 21:48] VITALS: BP 168/89; PULSE 60; RESP 18; TEMP 36.1; O2SAT 99
[2021-04-03] MEDS: SODIUM CHLORIDE 0.9% IV 1,000 ML 100 ML IV CONT (05:06)
[2021-04-03 05:51] VITALS: BP 183/69; PULSE 58; RESP 18; TEMP 36.6; O2SAT 95
[2021-04-03 06:21] LABS: Glucose Point of Care 80 mg/dl (65-105)
[2021-04-03 06:23] LABS: Alanine Aminotransferase 12 U/L (4-35); Albumin Level 2.6 g/dL (3.5-5.1); Alkaline Phosphatase 104 U/L (38-126); Anion Gap 9 mmol/L (8-16); Aspartate Amino Transferase 22 U/L (14-36); Bilirubin,Total 0.5 mg/dL (0.2-1.3); Blood Urea Nitrogen 23 mg/dL (7-17); Calcium 7.7 mg/dL (8.4-10.2); Carbon Dioxide 20 mmol/L (22-30); Chloride 112 mmol/L (98-107); Estimated CRCL calculation 25 ml/min; Estimated Glomerular Filt Rate 34; Glucose 76 mg/dL (65-110); Magnesium 1.6 mg/dL (1.6-2.3); Phosphorus 3.9 mg/dL (2.5-4.5); Sodium 141 mmol/L (137-145)
[2021-04-03 06:24] LABS: Basophils Percent Auto 0.3 % (0.2-1.2); Eosinophils Absolute Auto 0.2 K/mm3 (0-0.3); Eosinophils Percent Auto 2.7 % (0-4.4); Hematocrit 25.3 % (37.0-47.0); Hemoglobin 7.9 g/dL (12.0-15.0); Immature Granulocyte Absolute 0.01 K/mm3 (0.00-0.031); Immature Granulocyte Percent A 0.2 % (0-0.5); Lymphocytes Absolute Auto 1.79 K/mm3 (0.9-3.2); Lymphocytes Percent Auto 30.1 % (18.3-44.2); Mean Corpuscular HGB Conc 31.2 g/dl (32-36); Mean Corpuscular Hemoglobin 31.1 pg (26-34); Mean Corpuscular Volume 99.6 fl (80-100); Mean Platelet Volume 12.2 fl (7.4-10.4); Monocytes Absolute Auto 0.5 K/mm3 (0.1-0.6); Monocytes Percent Auto 8.4 % (2.6-8.5); Neutrophils Absolute Auto 3.5 K/mm3 (1.3-6.7); Neutrophils Percent Auto 58.3 % (45.5-73.1); Platelet Count Result 103 k/mm3 (150-375); Red Blood Count 2.54 M/mm3 (4.2-5.4); Red Cell Distribution Width 15.8 % (11.5-14.5)
[2021-04-03 07:43] LABS: Glucose Point of Care 75 mg/dl (65-105)
[2021-04-03 08:08] VITALS: PULSE 66
[2021-04-03] MEDS: AMOXICILLIN/CLAVULANATE K 875-125 MG TAB 1 TABLET PO (08:08)
[2021-04-03] MEDS: METOPROLOL TARTRATE 50 MG TAB PO (08:08)
[2021-04-03] MEDS: SERTRALINE HCL 50 MG TABLET PO (08:08)
[2021-04-03] MEDS: allopurinoL 100 MG TABLET PO (08:08)
[2021-04-03] MEDS: PREGABALIN (*CRX) 50 MG CAPSULE 100 MG PO (08:09)
--- NOTE | 2021-04-03 09:55 | PM.DS ---
DS: Admitting Diagnosis Discharge Date 04/03 Admitting Diagnosis combative behavior & falls at home DS: Discharge Diagnosis Discharge Diagnosis (1) Urinary tract infection: Code(s): N39.0 - Urinary tract infection, site not specified Status: Acute DS: Summary Hospital Course Reason for hospitalization: combative behavior & frequent falls Hospital Course: Patient is a 75-year-old lady who presents with her on March 25 [facility] with complaints of confusion, combative behavior frequent falls lasting 1 day. Patient known to have CKD 3, however Labs not consistent with uremia. Underlying CHF well controlled. And she was not in respiratory distress. And head CT showing areas of prior infarction without acute intracranial abnormality, and otherwise just age-related findings. Reversible workup including TSH and ammonia unremarkable. Urinalysis showing urinary tract infection. Initially on Rocephin, converted to complete 7 days of Augmentin. Time of discharge, mentation is at baseline. is at bedside and feels comfortable taking care of her at home. Care coordination discussed post discharge plans with them, they do not believe they require additional home support be on home health, which has been ordered. Of note, creatinine is 1.5 and has been persistently elevated throughout admission, despite IV hydration, this is related to her known CKD 3 most likely. She is also anemic with hemoglobin of 7.9, iron studies suggestive of anemia of chronic kidney disease. Treatment aimed at underlying kidney disease. Unclear if she follows with event decorator and designer outpatient, will give her appointment. In addition to primary care. Status at Discharge Functional status at discharge: uses cane/walker Overall status at discharge: patient is progressing back to baseline Time Spent with Patient Time attestation: Total time spent providing and/or coordinating discharge services: Time spent: Less than 30 minutes Exam Const: General: no acute distress Neck: Neck: no JVD Resp: Effort & Inspection: normal respiratory effort Auscultation: clear to auscultation bilaterally Cardio: Rate: regular rate Rhythm: regular rhythm GI: GI Palp: Yes Soft to palpation and No Tenderness to palpation present (GI) DS: Data Data Completed and Pending Labs on day of discharge: Labs from last 24 hours 04/03/21 04/03/21 04/03/21 07:18 06:18 05:43 WBC RBC Hgb Hct MCV MCH MCHC RDW Plt Count MPV Immature Gran % (Auto) Neut % (Auto) Lymph % (Auto) Lea % (Auto) Eos % (Auto) Baso % (Auto) Lymph # (Auto) Lea # (Auto) Eos # (Auto) Baso # (Auto) Abs Immat Gran (auto) Absolute Neuts (auto) Absolute Nucleated RBC Nucleated RBC % Absolute Retic Percent Retic Immature Retic Fraction Retic Hgb Content Sodium 141 Potassium 4.0 Chloride 112 H Carbon Dioxide 20 L Anion Gap 9 BUN 23 H Creatinine 1.50 H Estim Creat Clear Calc 25 Estimated GFR 34 L Glucose 76 POC Capillary Glucose 75 80 Calcium 7.7 L Phosphorus 3.9 Magnesium 1.6 Iron TIBC % Saturation Transferrin Ferritin Total Bilirubin 0.5 AST 22 ALT 12 Alkaline Phosphatase 104 Lactate Dehydrogenase Total Protein 6.0 L Albumin 2.6 L TSH (Reflex) 04/03/21 04/02/21 04/02/21 05:43 17:59 17:59 WBC 6.0 RBC 2.54 L Hgb 7.9 L Hct 25.3 L MCV 99.6 MCH 31.1 MCHC 31.2 L RDW 15.8 H Plt Count 103 L MPV 12.2 H Immature Gran % (Auto) 0.2 Neut % (Auto) 58.3 Lymph % (Auto) 30.1 Lea % (Auto) 8.4 Eos % (Auto) 2.7 Baso % (Auto) 0.3 Lymph # (Auto) 1.79 Lea # (Auto) 0.5 Eos # (Auto) 0.2 Baso # (Auto) 0.0 Abs Immat Gran (auto) 0.01 Absolute Neuts (auto) 3.5 Absolute Nucleated RBC 0.0 Nucleated RBC % 0.0 Absolute Retic Perce
[2021-04-03 12:41] LABS: Glucose Point of Care 91 mg/dl (65-105)
== END 2021-04-03 14:50 | disposition home health service (06) | DRG 690 ==
LOC: ANHED 20:33 → ANH3MEDSUR 22:21
PROVIDERS: Emergency Medicine Emergency Medical Services; Hospitalist; Internal Medicine; Internal Medicine Critical Care Medicine; Admitting Provider Internal Medicine; Emergency Provider Emergency Medicine; PCP Internal Medicine; Visit Provider Internal Medicine
DX: N39.0 Urinary tract infection, site not specified (principal); N17.9 Acute kidney failure, unspecified; I13.0 Hypertensive heart and chronic kidney disease with heart failure and stage 1 through stage 4 chronic kidney disease, or unspecified chronic kidney disease; E11.22 Type 2 diabetes mellitus with diabetic chronic kidney disease; N18.30 Chronic kidney disease, stage 3 unspecified; I50.9 Heart failure, unspecified; D69.6 Thrombocytopenia, unspecified; E86.0 Dehydration; I25.10 Atherosclerotic heart disease of native coronary artery without angina pectoris; E11.42 Type 2 diabetes mellitus with diabetic polyneuropathy; F17.210 Nicotine dependence, cigarettes, uncomplicated; D64.9 Anemia, unspecified; R53.1 Weakness; M10.9 Gout, unspecified; R29.6 Repeated falls; Z79.899 Other long term (current) drug therapy; Z86.16 Personal history of COVID-19
CPT/HCPCS: 36415; 51701; 70450; 71045; 74176; 80048; 80053; 81001; 82140; 82728; 82948; 83540; 83550; 83605; 83615; 83735; 84100; 84443; 84466; 85025; 85027; 85046; 85055; 85610; 85730; 86140; 87040; 87086; 93005; 96361; 96365; 96372; 96375; 96376; 97110; 97116; 97162; 97165; 97530; 99285; A9270; G0378; J0696; J1644; J7030; J7120

== ENCOUNTER 2021-04-06 15:14 | Emergency (ER) | payer MEDICARE, SELFPAY ==
--- NOTE | ~2021-04-06 | CT_ITS ---
EXAMINATION: CT brain wo con DATE: 04/06/2021 16:56 INDICATION: Status post fall with trauma to the occiput TECHNIQUE: Computed tomography (CT) of the head was performed without intravenous contrast. The dose- length product was 605.33 mGy-cm. Automated exposure control and iterative reconstruction technique w ere employed. COMPARISON: CT dated 03/25/2021 FINDINGS: There is a chronic right frontal lobe infarction with encephalomalacia. Generalized atrophy . There are scattered mild periventricular and subcortical white matter changes, most likely related to small vessel ischemic disease (microangiopathy). No ventriculomegaly or midline shift. No acute in tracranial hemorrhage, infarction, mass or mass effect. IMPRESSION: 1. No acute intracranial abnormality. 2: Chronic right frontal lobe infarction. Reviewed, dictated and finalized at location A.
--- NOTE | ~2021-04-06 | XR_ITS ---
XR chest 1V portable 04/06/2021 16:56 Indication: Shortness of breath Procedure: AP portable chest Comparison: Comparison to multiple prior studies sequentially, with oldest reviewed study dated 02/2017. Findings: Heart size is upper normal. Mild interstitial edema. No significant effusion or pneumothora x. No acute osseous abnormality. Impression: 1: Mild diffuse interstitial edema. Reviewed, dictated and finalized at location A. Impression: 1: Mild diffuse interstitial edema.
--- NOTE | 2021-04-06 16:09 | ECG_ITS ---
Measurements Intervals Industry Rate: 59 P: 64 CT: 217 QRS: -46 QRSD: 93 T: 8 QT: 415 QTc: 413 Interpretive Statements SINUS BRADYCARDIA WITH FIRST DEGREE AV BLOCK INCOMPLETE RIGHT BUNDLE BRANCH BLOCK LEFT ANTERIOR FASCICULAR BLOCK VOLTAGE CRITERIA FOR LVH BASELINE ARTIFACT- I, II, III, AVR, AVL, AVF, V1-V6 ABNORMAL ECG Electronically Signed On 04-07-2021 7:53:34 CDT by Jose Baker D.O.
[2021-04-06 16:10] VITALS: BP 154/80; PULSE 63; RESP 14; TEMP 36.2; O2SAT 97
--- NOTE | 2021-04-06 16:17 | ED.FALL ---
HPI - Fall General Chief Complaint: Fall Stated Complaint: fell Time Seen by Provider: 04/06/21 15:16 Source: patient, family and RN notes reviewed Mode of arrival: wheelchair Limitations: no limitations History of Present Illness complaint: fall Onset (ago): hour(s) (3) Fall from: standing and other (pt got up and was using a walker when she fell hitting her occiput. no chest pain, sob or acute persistent dizziness) Fall witnessed: no Place fall occurred: home Loss of consciousness: none Prolonged down time: no Symptoms prior to fall: none Context: tripped/slipped Location of injury: head Severity: mild Severity scale (1-10): 2 Quality: dull and aching Associated symptoms (after fall): headache Related Data Home Medications Medication Instructions Recorded Confirmed alendronate 70 mg PO WEEKLY 05/07/19 04/06/21 allopurinol 100 mg PO DAILY 05/07/19 04/06/21 losartan 100 mg PO DAILY 05/07/19 04/06/21 metoprolol tartrate 50 mg PO BID 05/07/19 04/06/21 pregabalin 150 mg PO DAILY 05/07/19 04/06/21 sertraline 50 mg PO DAILY 05/07/19 04/06/21 oxybutynin chloride 10 mg PO DAILY 02/24/21 04/06/21 trazodone 50 mg PO DAILY 02/24/21 04/06/21 Allergies Allergy/AdvReac Type Severity Reaction Status Date / Time codeine AdvReac Chest Pain Verified 04/06/21 16:16 Review of Systems Review of Systems: All systems reviewed & are unremarkable except as noted in HPI and below Neurologic: Reports headache(s) PMFSH Past Medical History Medical History Arthritis Gout Hypertension Peripheral neuropathy Type 2 diabetes mellitus Surgical History Surgical History History of appendectomy History of hysterectomy Social History Social History Smoking packs per day: 0.5 Smoking cigarettes per day: 10.0 Years smoked: 40 Smoking pack-years: 20.00 Smoking status: Former smoker Tobacco type: cigarettes Smoking end date: 03/04/21 Alcohol intake: never Substance use: never Substance use type: does not use Gender identity (if verbalized by the patient): Female Spiritual care concerns: No Exam Const: General: no acute distress and alert Nutritional Appearance: well nourished Orientation/consciousness: patient oriented x3 Limitations: no limitations HENMT: Head: normal to inspection Ears: external ears normal and TM's normal bilaterally General nose exam: Normal external nose present and Normal nares present Mouth: Yes lip normal and Yes moist mucous membranes Teeth and gingiva: dentition normal Eyes: Conjunctivae: conjunctivae normal Pupils: Equal, round and reactive pupils present EOM: EOMs intact bilaterally Neck: Neck: normal visual inspection and no lymphadenopathy Chest: Chest palpation & inspection: normal inspection of the chest Resp: Effort & Inspection: normal respiratory effort Auscultation: clear to auscultation bilaterally Cardio: Rate: regular rate Rhythm: regular rhythm GI: Auscultation: normal bowel sounds : General: Yes bladder normal to palpation and Yes no CVA tenderness External Female Exam: normal external appearance Back/Spine/Pelvis: Back: no CVA tenderness Skin: General skin exam: normal color Rashes: no rashes Neuro: General: patient oriented x3, moves all extremities, no meningeal signs, no focal motor deficits and CN's II-XI intact bilaterally Extrem: General: normal to inspection and no pedal edema Psych: Appearance: grossly normal and well kempt Mental Status: mental status grossly normal Affect: normal affect Attitude: cooperative Thought content: Yes Normal thought content present Course Course Emergency Course: Pt was comfortable in the ED with less BARRETO. She sat up in the bed and stood normally. Pt and family wanted her to be discharged home. For early PMD f/u. Reevaluation(
[2021-04-06 16:32] LABS: Basophils Absolute Auto 0.04 K/mm3 (0.00-0.10); Basophils Percent Auto 0.7 % (0.0-1.0); Eosinophils Absolute Auto 0.12 K/mm3 (0.02-0.50); Eosinophils Percent Auto 2.1 % (1.0-6.0); Hematocrit 25.2 % (35.0-42.0); Immature Granulocyte Absolute 0.02 K/mm3 (0.00-0.00); Immature Granulocyte Percent A 0.4 % (0.0-0.0); Lymphocytes Absolute Auto 1.36 K/mm3 (1.10-4.50); Lymphocytes Percent Auto 24.2 % (18.0-42.0); Mean Corpuscular HGB Conc 31.7 g/dL (32.0-36.0); Mean Corpuscular Hemoglobin 30.5 pg (27.0-31.0); Mean Corpuscular Volume 96.2 fL (78.0-102.0); Mean Platelet Volume 10.9 fl (9.2-11.8); Monocytes Absolute Auto 0.41 K/mm3 (0.10-0.90); Monocytes Percent Auto 7.3 % (2.0-11.0); Neutrophils Absolute Auto 3.7 K/mm3 (1.7-7.2); Neutrophils Percent Auto 65.3 % (50.0-70.0); Platelet Count Result 130 K/mm3 (150-420); Red Blood Count 2.62 M/mm3 (4.20-5.40); Red Cell Distribution Width 15.9 % (11.6-14.4); White Blood Count 5.6 K/mm3 (4.8-10.8)
[2021-04-06] MEDS: ACETAMINOPHEN 325 MG TABLET 650 MG PO (16:36)
[2021-04-06 16:48] LABS: Alanine Aminotransferase 14 U/L (14-59); Albumin Level 2.3 g/dL (3.4-5.0); Alkaline Phosphatase 131 U/L (46-116); Anion Gap 11 mmol/L (8-16); Aspartate Amino Transferase 14 U/L (15-37); Bilirubin,Total 0.3 mg/dL (0.00-1.00); Blood Urea Nitrogen 18 mg/dL (7-18); Calcium 8.1 mg/dL (8.5-10.1); Carbon Dioxide 24 mmol/L (21-32); Chloride 108 mmol/L (98-108); Estimated CRCL calculation 21 ml/min; Estimated Glomerular Filt Rate 27; Glucose 147 mg/dL (70-99); Lactic Acid Reflex 1.2 mmol/L (0.4-2.0); Osmolality Calculated 300 mOsm/kg (285-295); Potassium 4.1 mmol/L (3.5-5.1); Sodium 143 mmol/L (136-145); Total Protein 6.5 g/dL (6.4-8.2); Troponin I 15.6 ng/L (0.00-60.4)
[2021-04-06 16:50] LABS: Ethanol < 3 mg/dL (0-6)
[2021-04-06] MEDS: SODIUM CHLORIDE 0.9% IV 500 ML 999 ML IV CONT (17:02)
[2021-04-06] MEDS: FUROSEMIDE 20 MG TABLET 40 MG PO (17:38)
[2021-04-06 18:08] VITALS: BP 161/66; PULSE 55; RESP 20; TEMP 36.7; O2SAT 96
== END 2021-04-06 18:11 | disposition home or self-care (01) ==
PROVIDERS: Emergency Provider Emergency Medicine; PCP Internal Medicine
DX: S09.90XA Unspecified injury of head, initial encounter (principal); R55 Syncope and collapse; W19.XXXA Unspecified fall, initial encounter; I10 Essential (primary) hypertension; E11.9 Type 2 diabetes mellitus without complications; Z87.891 Personal history of nicotine dependence; Z79.899 Other long term (current) drug therapy
CPT/HCPCS: 36415; 70450; 71045; 80053; 80307; 83605; 84484; 85025; 93005; 96360; 99283; 99284; A9270; J7040

== ENCOUNTER 2021-04-11 15:23 | Outpatient (NON) | payer MEDICARE, SELFPAY ==
[2021-04-11 16:13] LABS: Anion Gap 10 mmol/L (8-16); Blood Urea Nitrogen 24 mg/dL (7-17); Calcium 8.5 mg/dL (8.4-10.2); Carbon Dioxide 23 mmol/L (22-30); Chloride 105 mmol/L (98-107); Estimated Glomerular Filt Rate 29; Glucose 81 mg/dL (65-110); Potassium 4.5 mmol/L (3.4-5.0); Sodium 138 mmol/L (137-145)
[2021-04-11 16:16] LABS: Hematocrit 25.1 % (37.0-47.0); Hemoglobin 8.2 g/dL (12.0-15.0)
== END 2021-04-11 15:24 | disposition home or self-care (01) ==
LOC: HOME HLTH 15:34
PROVIDERS: PCP Internal Medicine; Visit Provider Internal Medicine
DX: D64.0 Hereditary sideroblastic anemia (principal); R79.89 Other specified abnormal findings of blood chemistry; N39.0 Urinary tract infection, site not specified
CPT/HCPCS: 80048; 85014; 85018

== ENCOUNTER 2021-04-18 15:53 | Outpatient (NON) | payer MEDICARE, SELFPAY ==
[2021-04-18 16:21] LABS: Anion Gap 8 mmol/L (8-16); Blood Urea Nitrogen 22 mg/dL (7-17); Calcium 9.3 mg/dL (8.4-10.2); Carbon Dioxide 27 mmol/L (22-30); Chloride 104 mmol/L (98-107); Estimated Glomerular Filt Rate 23; Glucose 102 mg/dL (65-110); Potassium 4.3 mmol/L (3.4-5.0); Sodium 139 mmol/L (137-145)
== END 2021-04-18 15:54 | disposition home or self-care (01) ==
LOC: HOME HLTH 15:57
PROVIDERS: PCP Internal Medicine; Visit Provider Internal Medicine
DX: I11.0 Hypertensive heart disease with heart failure (principal); I50.9 Heart failure, unspecified; E11.9 Type 2 diabetes mellitus without complications; N39.0 Urinary tract infection, site not specified
CPT/HCPCS: 80048

== ENCOUNTER 2021-04-21 12:28 | Outpatient (CLI) | payer MEDICARE, SELFPAY ==
[2021-04-21] MEDS: IRON SUCROSE COMPLEX 300 MG in SODIUM CHLORIDE 0.9% IV 250 ML 166.67 MG IVPB (12:50)
[2021-04-21 12:53] VITALS: BMI 21.6
[2021-04-21 12:59] VITALS: BP 128/75; PULSE 80; RESP 14; TEMP 36.4; O2SAT 99
--- NOTE | 2021-04-21 14:09 | PC.NURSE ---
Patient here for #1 of 3 q 2 weeks Venofer IV infusion. Education on medication given. No concerns voiced. IV Venofer administered. Tolerated well. Safe exit of hospital. Will return . 04/24/21 for Aranesp injection. Than will return for next IV Venofer Infusion 05/05/21.
== END 2021-04-21 12:29 | disposition home or self-care (01) ==
LOC: CHSTREATRM 12:31
PROVIDERS: PCP Internal Medicine; Visit Provider Internal Medicine
DX: D50.9 Iron deficiency anemia, unspecified (principal)
CPT/HCPCS: 80048; 81001; 85014; 85018; 96365; 96366; J1756; J7050

== ENCOUNTER 2021-04-21 12:43 | Outpatient (NON) | payer MEDICARE, SELFPAY ==
[2021-04-21 12:57] LABS: Add Urine Microscopic? YES; Appearance Urine Clear (Clear); Bilirubin Urine Negative (Negative); Blood Urine 3+ (Negative); Color Urine Light Yellow (Yellow); Glucose Urine UA Negative (Negative); Hematocrit 29.2 % (35.0-42.0); Hemoglobin 9.4 g/dL (11.7-13.8); Ketones Urine Negative (Negative); Leukocyte Esterase Ur Negative LEU/UL (Negative); Nitrate Urine Negative (Negative); Protein Urine 1+ (Negative); Specific Grav Ur 1.015 (1.010-1.020); Urobilinogen Urine 0.2 mg/dL (0.2-1.0)
[2021-04-21 13:04] LABS: RBC Urine 21-50 /hpf (0-2); WBC Urine 0-3 /hpf (0-3)
[2021-04-21 13:05] LABS: Bacteria Urine Trace /hpf; Squamous Epithelial Cell Urine Rare /hpf (Few)
[2021-04-21 13:17] LABS: Anion Gap 9 mmol/L (8-16); Blood Urea Nitrogen 25 mg/dL (7-18); Calcium 9.1 mg/dL (8.5-10.1); Carbon Dioxide 25 mmol/L (21-32); Chloride 104 mmol/L (98-108); Estimated Glomerular Filt Rate 18; Glucose 103 mg/dL (70-99); Osmolality Calculated 290 mOsm/kg (285-295); Potassium 4.4 mmol/L (3.5-5.1); Sodium 138 mmol/L (136-145)
== END 2021-04-21 12:44 | disposition home or self-care (01) ==
LOC: CHSHH 12:45
PROVIDERS: Visit Provider Internal Medicine
DX: D64.9 Anemia, unspecified (principal); R79.89 Other specified abnormal findings of blood chemistry; N39.0 Urinary tract infection, site not specified
CPT/HCPCS: 36415; 80048; 81001; 85014; 85018; 96365; 96366; J1756; J7050

== ENCOUNTER 2021-04-24 12:46 | Outpatient (CLI) | payer MEDICARE, SELFPAY ==
[2021-04-24 12:51] VITALS: BMI 21.6
[2021-04-24 12:52] VITALS: BP 120/63; PULSE 72; RESP 14; TEMP 36.4; O2SAT 98
[2021-04-24] MEDS: DARBEPOETIN ALFA 100 MCG/0.5 ML 50 MCG SUB-Q (13:03)
--- NOTE | 2021-04-24 13:05 | PC.NURSE ---
Patient here for 1 of 3 Aranesp injections. Education on med given to patient and her , her support person. I+
--- NOTE | 2021-04-24 13:06 | PC.NURSE ---
Aranesp injection administered. Tolerated well. Patient has some increase confusion over past few weeks and is having hard time taking care of her. Home Health was out to see today. notified Dr. Bose office. Dr. Bose office recommend patient to go to ED to get check out and possible residential placement. Safe exit of of OP infusion room and to the ED.
== END 2021-04-24 12:47 | disposition home or self-care (01) ==
LOC: CHSLAB 12:48 → CHSTREATRM 12:49
PROVIDERS: PCP Internal Medicine; Visit Provider Internal Medicine
DX: N18.4 Chronic kidney disease, stage 4 (severe) (principal); D63.1 Anemia in chronic kidney disease
CPT/HCPCS: 96372; J0881

== ENCOUNTER 2021-04-24 13:02 | Observation (INO) | payer MEDICARE, SELFPAY ==
[2021-04-24] VITALS (7 sets, daily range): BP systolic 165–173; BP diastolic 64–73; PULSE 60–70; RESP 16–20; TEMP 36.4–36.9; O2SAT 97–98; BMI 22.7
--- NOTE | ~2021-04-24 | CT_ITS ---
EXAMINATION: CT brain wo con EXAM DATE: 04/24/2021 14:02 INDICATION: altered mental status confusion, poor historian,. Confusion. TECHNIQUE: Spiral CT of the head was performed without contrast. Axial, coronal and sagittal images were reviewed. The dose-length product (DLP) for this examination was 832.33 mGy-cm. The exposure w as tailored according to patient size, and iterative reconstruction (ASIR) was used as additional dos e reduction technique. Comparison is made to prior examination from 04/06/2021. FINDINGS: Study is limited due to patient motion. There is moderate-sized old right frontal lobe in farction, unchanged. There is no acute intraparenchymal hemorrhage. No evidence of intraparenchymal brain mass lesion. No evidence of acute infarction. Please note that initial head CT has limited se nsitivity for small or acute infarctions. There is mild periventricular and subcortical hypodensity, nonspecific but probably related to small vessel ischemic disease. There is moderate prominence of the sulci and ventricles related to cerebral atrophy. There is intracranial carotid arteriosclerosi s. There are no extra-axial collections. There is no mass effect or midline shift. Patient has had bilateral ocular lens surgery. Soft tissue is unremarkable. The visualized sinuses and mastoid air cells are well aerated. IMPRESSION: 1. Moderate size old right frontal lobe infarction unchanged. 2. Chronic age related findings. Reviewed, dictated and finalized at location B. CUTTER
--- NOTE | ~2021-04-24 | XR_ITS ---
EXAMINATION: XR chest 1V portable DATE: 04/24/2021 14:03 INDICATION: Altered mental status. TECHNIQUE: A single frontal view of the chest was obtained. COMPARISON: Chest single view 04/06/2021, chest CT 02/24/2021, CT abdomen and pelvis 03/25/2021 FINDINGS: The chest demonstrates clear lungs without pneumonia, pleural effusion, or pneumothorax. Th e heart size is normal. IMPRESSION: 1. No acute cardiopulmonary disease. Reviewed, dictated and finalized at location A. GY MANAGEMENT SPECIALIST
--- NOTE | 2021-04-24 13:40 | ECG_ITS ---
Measurements Intervals [place] Rate: 59 P: 68 MT: 237 QRS: -65 QRSD: 124 T: 80 QT: 462 QTc: 459 Interpretive Statements SINUS BRADYCARDIA WITH FIRST DEGREE AV BLOCK ATRIAL PREMATURE COMPLEX RIGHT BUNDLE BRANCH BLOCK LEFT ANTERIOR FASCICULAR BLOCK LEFT VENTRICULAR HYPERTROPHY AND ST-T CHANGE BASELINE ARTIFACT- I, II, III, AVR, AVL, AVF, V1-V6 ABNORMAL ECG Electronically Signed On 04-24-2021 14:30:01 BIZTALK DEVELOPER by Jose Baker D.O.
[2021-04-24 14:38] LABS: Basophils Absolute Auto 0.04 K/mm3 (0.00-0.10); Basophils Percent Auto 0.6 % (0.0-1.0); Eosinophils Absolute Auto 0.12 K/mm3 (0.02-0.50); Eosinophils Percent Auto 1.8 % (1.0-6.0); Hematocrit 30.8 % (35.0-42.0); Immature Granulocyte Absolute 0.01 K/mm3 (0.00-0.00); Immature Granulocyte Percent A 0.1 % (0.0-0.0); Lymphocytes Absolute Auto 1.73 K/mm3 (1.10-4.50); Lymphocytes Percent Auto 25.4 % (18.0-42.0); Mean Corpuscular HGB Conc 32.5 g/dL (32.0-36.0); Mean Corpuscular Hemoglobin 31.2 pg (27.0-31.0); Mean Platelet Volume 11.5 fl (9.2-11.8); Monocytes Absolute Auto 0.51 K/mm3 (0.10-0.90); Monocytes Percent Auto 7.5 % (2.0-11.0); Neutrophils Absolute Auto 4.4 K/mm3 (1.7-7.2); Neutrophils Percent Auto 64.6 % (50.0-70.0); Platelet Count Result 162 K/mm3 (150-420); Red Blood Count 3.21 M/mm3 (4.20-5.40); Red Cell Distribution Width 15.4 % (11.6-14.4); White Blood Count 6.8 K/mm3 (4.8-10.8)
[2021-04-24] MEDS: SODIUM CHLORIDE 0.9% IV 1,000 ML 999 ML IV CONT (14:40)
--- NOTE | 2021-04-24 14:49 | PC.NURSE ---
pt ot bathroom via w/c to void for urine specimen. pt unable to void at this time. iv infusing well.
[2021-04-24 14:58] LABS: Lactic Acid Reflex 0.9 mmol/L (0.4-2.0)
[2021-04-24 15:01] LABS: Alanine Aminotransferase 15 U/L (14-59); Albumin Level 3.2 g/dL (3.4-5.0); Alkaline Phosphatase 127 U/L (46-116); Anion Gap 12 mmol/L (8-16); Aspartate Amino Transferase 20 U/L (15-37); Bilirubin,Total 0.4 mg/dL (0.00-1.00); Blood Urea Nitrogen 26 mg/dL (7-18); Calcium 9.3 mg/dL (8.5-10.1); Carbon Dioxide 25 mmol/L (21-32); Chloride 102 mmol/L (98-108); Estimated CRCL calculation 16 ml/min; Estimated Glomerular Filt Rate 20; Glucose 110 mg/dL (70-99); Osmolality Calculated 293 mOsm/kg (285-295); Potassium 3.8 mmol/L (3.5-5.1); Sodium 139 mmol/L (136-145); Total Protein 8.1 g/dL (6.4-8.2)
[2021-04-24 15:12] LABS: INR 1.1; Partial Thromboplastin Time 26.2 SEC (23.90-30.70); Prothrombin Time 11.4 Seconds (9.50-12.10)
[2021-04-24 15:21] LABS: Thyroid Stimulating Hormone 1.92 uIU/mL (0.36-3.74)
--- NOTE | 2021-04-24 15:22 | PC.NURSE ---
1510---pt straight cathed or urine. pt tolerated well. clear yellow urine return. specimen sent to lab
--- NOTE | 2021-04-24 15:25 | PC.NURSE ---
discussion held with pt and spouse regarding DNR. all options explained. all questions answered. DNR signed by pt. witnessed by this proposal writer and signed by dr mensah
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
[2021-04-24 15:32] LABS: CRP < 0.5 mg/dL (0.0-0.9)
[2021-04-24 15:42] LABS: Color Urine Yellow (Yellow)
[2021-04-24 15:43] LABS: Appearance Urine Clear (Clear); Blood Urine 3+ (Negative); Glucose Urine UA Negative (Negative); Ketones Urine Negative (Negative); Protein Urine 1+ (Negative); Specific Grav Ur 1.025 (1.010-1.020)
[2021-04-24 15:44] LABS: Add Urine Microscopic? YES; Bilirubin Urine Negative (Negative); Leukocyte Esterase Ur Negative (Negative); Nitrate Urine Negative (Negative); RBC Urine >75 /hpf (0-2); Urobilinogen Urine 0.2 mg/dL (0.2-1.0)
[2021-04-24 15:45] LABS: Bacteria Urine 3+ /hpf; Squamous Epithelial Cell Urine Few /hpf (Few)
--- NOTE | 2021-04-24 16:24 | PC.NURSE ---
OBS admission in progress to room 206. pt without complaints. watching tv with spouse.
--- NOTE | 2021-04-24 16:38 | PC.NURSE ---
report called to 2nd floor rn ,
--- NOTE | 2021-04-24 17:59 | PC.NURSE ---
Patient admitted to room 206 from ED on Observation status d/t altered mental status, confusion and UTI.
[2021-04-24 18:05] LABS: Glucose Point of Care 116 mg/dl (65-105)
[2021-04-24] MEDS: SODIUM CHLORIDE 0.9% IV 1,000 ML 100 ML IV CONT (18:26)
--- NOTE | 2021-04-24 19:00 | PC.NURSE ---
Completed bedside change of shift report. Patient stated that she was not in any pain. Patient is resting comfortably in bed, with no signs of pain or discomfort. Patient has water pitcher and call light within reach. Patient stated that she did not need anything else at this time.
[2021-04-24] MEDS: METOPROLOL TARTRATE 50 MG TAB PO (21:06)
[2021-04-24 21:19] LABS: Glucose Point of Care 148 mg/dl (65-105)
--- NOTE | 2021-04-24 22:23 | PC.NURSE ---
Patient has an IV in her right AC. She cannot remember to keep her arm straight. After several reminders, patient was given a pillow to use to keep the arm straight. That was unsuccessful. Finally, the patient had a small straight board placed over her IV site, and had it wrapped in kerlex to keep it in place. Patient is now able to keep her arm straight, which allows her IV fluid to keep running. Patient stated that she is not experiencing any pain, and does not need anything at this time. Patient is resting comfortably in her bed.
--- NOTE | 2021-04-24 23:17 | PC.NURSE ---
patient rounding completed. Patient has been restless, and has needed to be resettled in bed several times this past hour. She is now resting comfortably in bed, with no signs of pain or discomfort.
[2021-04-25] VITALS: BP 156/61; PULSE 66; RESP 20; TEMP 37; O2SAT 97
--- NOTE | 2021-04-25 00:35 | PC.NURSE ---
Patient is still very restless, and has set off the bed alarm several times due to moving in the bed. During a check after the bed alarm went off, noted that blood was on the pillow the IV arm was resting on. Visual inspection found the IV pulled out of the arm, with the straight board still intact. Patient's IV was changed to a 20 right wrist.
--- NOTE | 2021-04-25 01:11 | PC.NURSE ---
Completed patient rounding. Patient was restless in bed. Asked her if she was wet, she said yes. Full bed change, and she settled down for sleep.
--- NOTE | 2021-04-25 02:00 | PC.NURSE ---
Completed patient rounding. Patient has been quiet, and is resting comfortably in bed, with no signs of pain or discomfort.
[2021-04-25 04:00] VITALS: BP 152/60; PULSE 67; RESP 16; TEMP 36.4; O2SAT 96
[2021-04-25 05:31] LABS: Basophils Absolute Auto 0.06 K/mm3 (0.00-0.10); Basophils Percent Auto 0.8 % (0.0-1.0); Eosinophils Absolute Auto 0.17 K/mm3 (0.02-0.50); Eosinophils Percent Auto 2.2 % (1.0-6.0); Hematocrit 28.5 % (35.0-42.0); Hemoglobin 8.9 g/dL (11.7-13.8); Immature Granulocyte Absolute 0.02 K/mm3 (0.00-0.00); Immature Granulocyte Percent A 0.3 % (0.0-0.0); Lymphocytes Absolute Auto 2.28 K/mm3 (1.10-4.50); Lymphocytes Percent Auto 29.3 % (18.0-42.0); Mean Corpuscular HGB Conc 31.2 g/dL (32.0-36.0); Mean Corpuscular Hemoglobin 30.6 pg (27.0-31.0); Mean Corpuscular Volume 97.9 fL (78.0-102.0); Mean Platelet Volume 10.9 fl (9.2-11.8); Monocytes Absolute Auto 0.59 K/mm3 (0.10-0.90); Monocytes Percent Auto 7.6 % (2.0-11.0); Neutrophils Absolute Auto 4.7 K/mm3 (1.7-7.2); Neutrophils Percent Auto 59.8 % (50.0-70.0); Platelet Count Result 147 K/mm3 (150-420); Red Blood Count 2.91 M/mm3 (4.20-5.40); Red Cell Distribution Width 15.8 % (11.6-14.4); White Blood Count 7.8 K/mm3 (4.8-10.8)
[2021-04-25] MEDS: SODIUM CHLORIDE 0.9% IV 1,000 ML 100 ML IV CONT (05:32)
[2021-04-25 05:49] LABS: Alanine Aminotransferase 13 U/L (14-59); Albumin Level 2.7 g/dL (3.4-5.0); Alkaline Phosphatase 105 U/L (46-116); Anion Gap 13 mmol/L (8-16); Aspartate Amino Transferase 17 U/L (15-37); Bilirubin,Total 0.4 mg/dL (0.00-1.00); Blood Urea Nitrogen 23 mg/dL (7-18); Calcium 8.3 mg/dL (8.5-10.1); Carbon Dioxide 23 mmol/L (21-32); Chloride 109 mmol/L (98-108); Estimated CRCL calculation 19 ml/min; Estimated Glomerular Filt Rate 25; Glucose 78 mg/dL (70-99); Osmolality Calculated 302 mOsm/kg (285-295); Potassium 3.4 mmol/L (3.5-5.1); Sodium 145 mmol/L (136-145); Total Protein 6.9 g/dL (6.4-8.2)
--- NOTE | 2021-04-25 06:36 | PC.NURSE ---
Patient did not sleep during the past night. She was restless during the initial part of the evening, and ended up pulling out her IV. The IV was replaced, and she has received continuous normal saline except for that small amount of time she was missing the IV. Patient's daughter called for an update this morning, and stated that the patient does not sleep unless she is given a sedative. Patient has been cooperative and in a good mood all night.
[2021-04-25 08:00] VITALS: BP 170/71; PULSE 73; RESP 20; TEMP 36.5; O2SAT 93
[2021-04-25 08:11] LABS: Glucose Point of Care 98 mg/dl (65-105)
[2021-04-25] MEDS: UMECLIDINIUM BROMIDE 62.5 MCG ELLIPTA 1 PUFF INHALATION (09:13)
[2021-04-25] MEDS: LOSARTAN POTASSIUM 50 MG TABLET 100 MG PO (09:14)
[2021-04-25 09:15] VITALS: PULSE 73
[2021-04-25] MEDS: METOPROLOL TARTRATE 50 MG TAB PO (09:15)
[2021-04-25] MEDS: SERTRALINE HCL 50 MG TABLET 100 MG PO (09:15)
[2021-04-25 11:29] LABS: Glucose Point of Care 116 mg/dl (65-105)
--- NOTE | 2021-04-25 11:52 | PM.IMHP ---
H&P: HPI History of Present Illness Date/Time: 04/25/21 11:52 this is a 75-year-old female that presented to our emergency department for altered mental status. patient has a past medical history of arthritis, gout, hypertension, peripheral neuropathy and type 2 diabetes recently diagnosed with kidney disease and anemia. patient is a poor historian and often times does not know her pain does not know her location time or current president. according to her daughter altered mental status is not new to her she has been experiencing dementia for quite some time now although she is not been diagnosed with dementia. She also notes that the patient is suffering from failure to thrive often times she forgets to eat or have to be reminded often to eat or even feed. I was also informed that she has been diagnosed with anemia has been receiving iron infusion her last 1 being . she was also been informed that she has kidney failure and needs to follow with associate professor of media arts family is waiting on a call back for treatment. I did speak with her daughter was not her palpable returning. her daughter informed me that she is her caregiver along with her daughter in her father, her daughter informed me the only able to take care her mother at any more. patient's is her power of trade mark attorney and according to the daughter he is in denial. Daughter asked me to speak with her father concerning placement of her mother he and a retirement. I informed her daughter that we could have that discussion , but it would ultimately mean more if she sat down with her father and discussed her concerns and her inability to care for her mother at home. WBC 6.8 hemoglobin 10.0 hematocrit 30.8, platelets 147, sodium 139, potassium 3.8, BUN 26, creatinine 2.32, glucose 116, UA positive for protein blood, wbc's and bacteria head CT with chronic right frontal lobe infarct, chest x-ray unremarkable EKG sinus Arthur with first-degree AV block heart rate of 59. patient will retreat dot with IV antibiotic therapy and discharged to a retirement. observation time spent 60 minutes <BISMARK Burroughs - Last Filed: 04/25/21 12:33> Chief Complaint: altered mental status <BISMARK Burroughs - Last Filed: 04/25/21 12:33> Review of Systems Review of Systems: ROS unobtainable: Yes unobtainable due to mental status <BISMARK Burroughs - Last Filed: 04/25/21 12:33> [facility] Past Medical History Medical History: Medical History Arthritis Gout Hypertension Peripheral neuropathy Type 2 diabetes mellitus <BISMARK Burroughs - Last Filed: 04/25/21 12:33> Surgical History Surgical History: Surgical History History of appendectomy History of hysterectomy <BISMARK Burroughs - Last Filed: 04/25/21 12:33> Social History Social History: Social History Smoking packs per day: 0.5 Smoking cigarettes per day: 10.0 Years smoked: 40 Smoking pack-years: 20.00 Smoking status: Former smoker Tobacco type: cigarettes Second hand tobacco smoke exposure: No Smoking end date: 03/04/21 Alcohol intake: former Substance use: former Substance use type: does not use Gender identity (if verbalized by the patient): Female Spiritual care concerns: No <BISMARK Burroughs - Last Filed: 04/25/21 12:33> Meds Home Medications and Allergies Home medications: Home Medications Medication Instructions Recorded Confirmed Type alendronate 70 mg PO WEEKLY 05/07/19 04/24/21 History allopurinol 100 mg PO BID 05/07/19 04/24/21 History losartan 100 mg PO DAILY 05/07/19 04/24/21 History metoprolol tartrate 50 mg PO BID 05/07/19 04/24/21 History sertraline 100 mg PO DAILY 05/07/19 04/24/21 History oxybutynin chloride 10 mg PO DAILY 02/24/21 04/24/21 H
--- NOTE | 2021-04-25 11:56 | STIPEVAL ---
Thank you for referring Kelly Stone to [facility].? Evaluation only with no ST warranted at this time. Please review, sign, date and return this report JOSE LUIS. I agree with and certify that the following plan of care is medically necessary. Referring Physician Date Admitting Provider: Dimas Shannon MD Attending Provider: Dimas Shannon MD Referring Provider: *ST Inpatient Evaluation Start: 04/25/21 11:27 Freq: Status: Active Protocol: Document 04/25/21 10:45 MJB (Rec: 04/25/21 11:55 NILESH [email or web address]) Therapy Assessment Status Assessment Status Assessment Status Evaluation Prior Level of Function Home Setting [place] Responsibilities Comment Patient lives at home with her and daughter. Daughter reported that the patient continues to need more and more care recently. Prior Cognition/Communication Prior Communication Level Moderate Impairment Prior Cognitive Function Moderate Assistance,Memory Impaired Prior Ability to Handle Finances Dependent Pain Assessment Timing of Pain Assessment Timing of Pain Assessment Assessment Self Report Self Report Pain Level 0 Pain Score Pain Score 0: Self Report Cognitive Evaluation Attention Assessment Selective Attention Overall Attention Ability Severe Impairment Cueing Type Needed Visual Amount of Cueing Needed Maximum Orientation/Memory Assessment Temporal Orientation 0 Query Text:% Accuracy Spatial/Environmental Orientation 0 Query Text:% Accuracy Overall Orientation and Memory Severe Deficits Orientation/Memory Comments Patient presented with difficulty recalling; year, season, date, day, month, current location, state, county, town, hospital and floor. Thought Organization Overall Thought Organization Ability Severe Deficits Auditory Processing and Retention Assessment Overall Auditory Processing Ability Severe Deficits Auditory Processing Comments Mini-Mental Examination was administered with a score of 5 /30 indicating a severe cognitive impairment (marked impairment. Likely to require 24-hour supervision and assistance with ADL's). Patient presented with difficulty recalling all orientation questions,
[2021-04-25 14:22] LABS: SARS-CoV-2 Ag Negative (Negative)
--- NOTE | 2021-04-25 17:25 | PC.NURSE ---
Patient discharged to [facility] accompanied by spouse. [facility] staff provided transport via and report called. All personal items had been bagged up and sent with spouse. discharge instructions given to spouse and patient, both acknowledging understanding. IV site discontinued and removed prior to discharge.
--- NOTE | 2021-04-28 12:58 | PC.NURSE ---
long-term nurse states they received and understood the discharge instructions.
== END 2021-04-25 16:25 ==
LOC: CHSED 15:52 → CHS2ND 04-25 06:48
PROVIDERS: Nurse Practitioner; Admitting Provider Emergency Medicine; Emergency Provider Emergency Medicine; PCP Internal Medicine; Visit Provider Emergency Medicine
DX: N39.0 Urinary tract infection, site not specified (principal); I12.9 Hypertensive chronic kidney disease with stage 1 through stage 4 chronic kidney disease, or unspecified chronic kidney disease; N18.30 Chronic kidney disease, stage 3 unspecified; E11.22 Type 2 diabetes mellitus with diabetic chronic kidney disease; D64.9 Anemia, unspecified; E11.40 Type 2 diabetes mellitus with diabetic neuropathy, unspecified; M19.90 Unspecified osteoarthritis, unspecified site; M10.9 Gout, unspecified; Z86.73 Personal history of transient ischemic attack (TIA), and cerebral infarction without residual deficits; Z87.891 Personal history of nicotine dependence; Z20.822 Contact with and (suspected) exposure to COVID-19
CPT/HCPCS: 36415; 70450; 71045; 80053; 81001; 82948; 83605; 84443; 85025; 85610; 85730; 86140; 87040; 87426; 93005; 96125; 96361; 96365; 96372; 97161; 99285; A9270; C9803; G0378; J0696; J0881; J7030

== ENCOUNTER 2021-05-05 12:41 | Outpatient (CLI) | payer OTHER, MEDICARE, SELFPAY ==
[2021-05-05 13:01] VITALS: BP 140/74; PULSE 68; RESP 12; TEMP 36.7; O2SAT 99
[2021-05-05 13:03] VITALS: BMI 22.8
[2021-05-05] MEDS: IRON SUCROSE COMPLEX 300 MG in SODIUM CHLORIDE 0.9% IV 250 ML 125 MG IV PUSH (13:05)
--- NOTE | 2021-05-05 15:12 | PC.NURSE ---
Patient here for # 2 of 3 IV Venofer infusions. Education on Venofer infusion given. No concerns voiced. IV Venofer administered. SEE MAR. Tolerated infusion well. Safe exit of hospital with who is going to wheel her back to [place]. Will return in two weeks for # 3.
== END 2021-05-05 12:42 | disposition home or self-care (01) ==
LOC: CHSTREATRM 12:43
PROVIDERS: PCP Internal Medicine; Visit Provider Internal Medicine
DX: D50.9 Iron deficiency anemia, unspecified (principal)
CPT/HCPCS: 96365; 96366; J1756; J7050

== ENCOUNTER 2021-05-08 07:09 | Outpatient (CLI) | payer MEDICARE, SELFPAY ==
[2021-05-08 08:27] VITALS: BMI 22.8
[2021-05-08 08:28] VITALS: BP 131/69; PULSE 72; RESP 14; TEMP 36.5; O2SAT 98
[2021-05-08] MEDS: DARBEPOETIN ALFA 100 MCG/ML VIAL 50 MCG SUB-Q (08:29)
--- NOTE | 2021-05-08 08:30 | PC.NURSE ---
Patient here for #2 of 3 Aranesp injections. No concerns voiced. Injection administered see AUG. Latest H/H 8.9/28.5. Tolerated injection well. Safe exit of hospital.
== END 2021-05-08 07:10 | disposition home or self-care (01) ==
LOC: CHSTREATRM 07:11
PROVIDERS: PCP Internal Medicine; Visit Provider Internal Medicine
DX: N18.4 Chronic kidney disease, stage 4 (severe) (principal); D63.1 Anemia in chronic kidney disease
CPT/HCPCS: 96372; J0881

== ENCOUNTER 2021-05-20 12:27 | Outpatient (CLI) | payer MEDICARE, SELFPAY ==
[2021-05-20 12:33] VITALS: BMI 22.8
[2021-05-20] MEDS: IRON SUCROSE COMPLEX 300 MG in SODIUM CHLORIDE 0.9% IV 235 ML 125 MG IVPB (12:40)
[2021-05-20 12:46] VITALS: BP 129/60; PULSE 56; RESP 14; TEMP 36.6; O2SAT 99
== END 2021-05-20 12:28 | disposition home or self-care (01) ==
PROVIDERS: PCP Internal Medicine; Visit Provider Internal Medicine
DX: D50.9 Iron deficiency anemia, unspecified (principal)
CPT/HCPCS: 96365; 96366; J1756; J7050

== ENCOUNTER 2021-05-22 14:08 | Outpatient (CLI) | payer MEDICARE, SELFPAY ==
--- NOTE | ~2021-05-22 | US_ITS ---
EXAMINATION: US retroperitoneal comp EXAM DATE: 05/22/2021 14:45 INDICATION: Chronic kidney disease stage 3A. TECHNIQUE: Multiple grayscale and Doppler images of the kidneys were obtained (by a technologist who performed the scan) and subsequently reviewed. Comparison is made to prior examination from 09/16/2020 . FINDINGS: Right kidney: There is normal contour and echogenicity. It measures 7.7 x 3.8 x 3.8 centimeters. Th ere are no focal renal lesions identified. There is no hydronephrosis. Left kidney: There is normal contour and echogenicity. It measures 8.6 x 4.5 x 4.8 centimeters. The re are no focal renal lesions identified. There is no hydronephrosis. Bladder unremarkable. IMPRESSION: 1. Mild bilateral renal atrophy. Reviewed, dictated and finalized at location B. LE MANUFACTURING CONSULTANT
[2021-05-22 14:19] VITALS: BMI 21.4
[2021-05-22 14:20] VITALS: BP 125/67; PULSE 78; RESP 14; TEMP 36.7; O2SAT 99
--- NOTE | 2021-05-22 14:23 | PC.NURSE ---
Patient here for #3 of 3 Aranesp injections. H/H 9.2/30.3 on latest labs. NO concerns voiced. Injection administered. Tolerated well. Safe exit of hospital.
[2021-05-22] MEDS: DARBEPOETIN ALFA 100 MCG/ML VIAL 50 MCG SUB-Q (14:32)
== END 2021-05-22 14:09 | disposition home or self-care (01) ==
PROVIDERS: PCP Internal Medicine; Visit Provider Internal Medicine Nephrology
DX: N18.4 Chronic kidney disease, stage 4 (severe) (principal); D63.1 Anemia in chronic kidney disease
CPT/HCPCS: 76770; 96372; J0881